=== PATIENT | male | born 1985 | race Caucasian/White ===

== ENCOUNTER 2016-09-20 21:53 | Emergency (ER) | payer OTHER ==
[~2016-09-20] VITALS: Ht 160 cm; Wt 55.5 kg
[~2016-09-20 21:53] MED LIST: CYCL10TA6 PO; HYDR-5688 PO
[2016-09-20 21:57] VITALS: TEMP 36.4; Ht 160 cm; Wt 55.5 kg
[2016-09-20] MEDS ORDERED: NORCO 5/325MG HOME PACK PO ONE (22:15)
[2016-09-20 22:38] VITALS: BP 122/70; PULSE 74; O2SAT 98
--- NOTE | 2016-09-20 23:20 | EMERGENCY ROOM VISIT NOTE ---
History Report prepared by German: Alonso Johnson Under the Supervision of: Dr. Edgardo Foy M.D. First contact with patient: 22:04 Chief Complaint: SHOULDER PAIN Stated Complaint: LEFT SHOULDER PAIN History of Present Illness The patient is a 31 year old male who presents to the Emergency Room with complaints of persistent left shoulder pain beginning 4 to 5 days ago. He notes he has had the pain for 4 to 5 days, and get a shot today which later worsened his pain. He was seen by a PA in [place] in this past Fall and had x-rays done. They had talked about steroids shots at this time. Lidocaine was used. The patient reports the pain radiates to his neck and is worsened with movement. The patient reports a history of hand surgery on his ulnar nerve and thus has chronic tingling in his left 4th and 5th digits. He has also had a vasectomy. Pt denies LOC, headache, fevers, chills, diaphoresis, visual changes, chest pain , breathing difficulties, nausea, vomiting, abdominal pain, weakness, rash, or other complaints. Source of History: patient Onset: 4 to 5 days ago Position: shoulder (left) Quality: other (shoulder pain) Timing: other (persistent) Modifying Factors (Worsening): movement Associated Symptoms: + neck pain Review of Systems See HPI for pertinent positives and negatives. A total of six systems were reviewed and were otherwise negative. Past Medical & Surgical Medical Problems: (1) Abdominal pain (2) Acute exacerbation of chronic low back pain (3) Cellulitis of left foot (4) Diarrhea (5) Lumbago (6) Rectal bleeding (7) Vomiting Surgical Problems: (1) H/O vasectomy (2) History of tonsillectomy (3) History of vasectomy (4) S/P tonsillectomy (5) [place] teeth extracted Family History FH: Crohn's disease Hypertension Social History Smoking Status: Current Every Day Smoker Alcohol Use: none Drug Use: none Marital Status: in relationship Housing Status: lives with significant other Occupation Status: employed Current/Historical Medications No Active Prescriptions or Reported Meds Allergies Coded Allergies: No Known Allergies (Unverified , 12/08/14) Physical Exam Vital Signs Date Time Temp Pulse Resp B/P Pulse Ox O2 Delivery O2 Flow Rate FiO2 09/20/16 22:38 74 20 122/70 98 09/20/16 21:57 36.4 73 19 136/91 97 Room Air Physical Exam GENERAL: Awake, alert, well-appearing, in no distress HENT: Normocephalic, atraumatic. Oropharynx unremarkable. EYES: Normal conjunctiva. Sclera non-icteric. NECK: Supple. No nuchal rigidity. FROM. No JVD. RESPIRATORY: Clear to auscultation. CARDIAC: Regular rate, normal rhythm. Extremities warm and well perfused. Pulses equal. ABDOMEN: Soft, non-distended. No tenderness to palpation. No rebound or guarding. No masses. RECTAL: Deferred. MUSCULOSKELETAL: Chest examination reveals no tenderness. The back is symmetrical on inspection without obvious abnormality. There is no CVA tenderness to palpation. No joint edema. Single injection site on the left posterior deltoid region. NVI over all dermatomes and myotomes except for chronic tingling in the left 4th and 5th digits since prior nerve surgery. LOWER EXTREMITIES: Calves are equal size bilaterally and non-tender. No edema. No discoloration. NEURO: Normal sensorium. No sensory or motor deficits noted. SKIN: No rash or jaundice noted. Medical Decision & Procedures Medications Administered Medications (Trade) Dose Ordered Sig/Power Route Start Time Stop Time Status Last Admin Dose Admin Acetaminophen/ Hydrocodone Bitart ([place] 5/325mg Home Pack) 1 homepack UD ONCE PO 09/20/16 22:15 09/20/16 22:16 DC 09/20/16 22:33 1 HOMEPACK ED Course 220: The patient was evaluated in room B5. A complete history and physical exam was performed. 2214: Ordered Acetaminophen/Hydrocodone Bitart 1 homepack PO. 2229: I reevaluated the patient. Discussed results and discharge instructions: He verbalized understanding and agreement. The patient is ready for discharge. Medical Decision Etiologies such as postinjection pain, soft tissue injury, fracture, dislocation , neurovascular compromise, compartment syndrome, as well as others were entertained. The patient had good range of motion of the left shoulder but there was some pain. There is no sign of infection. He is neurologically intact except for some tingling over the C8 dermatome which she states is chronic from his prior surgery. Internal and external rotation was preserved. Flexion and extension was preserved. Abduction was also preserved. The patient was given a sling. He'll be given a home pack for hydrocodone as I suspect he has pain from the injection. He worsens in any way she will come back. He will follow-up as an outpatient. I did outline sling instructions.I gave my usual and customary discussion regarding this issue. Return structures were outlined and the patient was discharged in stable condition. The chart was completed utilizing [employer] Speech voice recognition software. Grammatical errors, random word insertions, pronoun errors, and incomplete sentences are an occasional consequence of this system due to software limitations, ambient noise, and hardware issues. Any formal questions or concerns about the content, text, or information contained within the body of this dictation should be directly addressed to the physician for clarification. Impression Primary Impression: Left shoulder pain Scribe Attestation The scribe's documentation has been prepared under my direction and personally reviewed by me in its entirety. I confirm that the note above accurately reflects all work, treatment, procedures, and medical decision making performed by me. Departure Information Dispostion Home / Self-Care Prescriptions No Active Prescriptions or Reported Meds Referrals No Doctor, Assigned (PCP) Patient Instructions My [facility] Additional Instructions ORTHOPEDIC INSTRUCTIONS: Hydrocodone/acetaminophen 5/325mg: Take 1-2 pills every 6 hours as needed for pain. Avoid additional Acetaminophen/Tylenol, alcohol, operating machinery or dangerous equipment, working on ladders or roofs, DRIVING, or situations where being under the influence may be dangerous. Ibuprofen(Motrin, Advil) may be used for fever or pain. Use 600mg every six hours as needed. Take with food. Avoid using more than 2400mg in a 24 hour period. Do not use 2400mg per day for more than three consecutive days without physician direction. Prolonged inappropriate use can lead to stomach upset or ulcers. Ice compresses for 20 minutes at a time four times daily for 2-3 days. Use the sling as instructed. Remove your arm from the sling 4-6 times a day and move all the joints around to keep them loose. Rest and elevate your arm. Return to the ER immediately for any numbness, tingling, severe pain, extreme swelling in the extremity or as needed. Follow-up with your primary care physician in 2 to 3 days for a recheck of your current condition.
[2017-03-29] MEDS ORDERED: ONDA4TAB10 SL (17:03)
[2017-03-29] MEDS ORDERED: NICO14DI5 TD (17:03)
[2017-03-29] MEDS ORDERED: DICY10CA12 PO (17:03)
== END 2016-09-20 22:39 | disposition home or self-care (01) ==
LOC: C.EDB 21:56
DX: M25.512 Pain in left shoulder (principal); F17.200 Nicotine dependence, unspecified, uncomplicated; Z86.19 Personal history of other infectious and parasitic diseases; Z98.890 Other specified postprocedural states; Z98.52 Vasectomy status; Z82.49 Family history of ischemic heart disease and other diseases of the circulatory system

== ENCOUNTER 2017-03-24 10:02 | Inpatient (IN) | payer OTHER ==
[~2017-03-24] VITALS: Ht 162.6 cm; Wt 58.0 kg
[2017-03-24] MEDS ORDERED: WLLSR100 PO (10:35)
[2017-03-24] MEDS ORDERED: SODIUM CHLORIDE 0.9% 1000ML 1,000 ML IV ONE (11:30)
--- NOTE | 2017-03-24 11:45 | EMERGENCY ROOM VISIT NOTE ---
History First contact with patient: 11:11 Chief Complaint: RECTAL BLEEDING Stated Complaint: RECTAL BLEEDING Nursing Triage Summary: triage not: pt reports at approx 1000 he had a bm and it was bright red blood. History of Present Illness The patient is a 31 year old male who presents to the Emergency Room with complaints of bright red blood with his bowel movement at approximately 10 AM. He notes that there was blood in the toilet. He also had a significant amount of blood when he wiped. He denies any hemorrhoids. The patient also complains of intermittent abdominal pain in the lower abdomen. He does occasionally have blood in his stool and abdominal pain. He saw GI doctor a few years back. He had an EGD and a colonoscopy. No abnormalities were found. The patient does feel very warm. He did not check his temperature at home. He recently finished a course of antibiotics because his son caught pertussis; therefore, he was given prophylaxis. Review of Systems 10 system review performed and negative unless noted in HPI or below Past Medical/Surgical History Medical Problems: (1) Abdominal pain (2) Acute exacerbation of chronic low back pain (3) Cellulitis of left foot (4) Diarrhea (5) GI bleed (6) Lumbago (7) Rectal bleeding (8) Vomiting Surgical Problems: (1) H/O vasectomy (2) History of tonsillectomy (3) History of vasectomy (4) S/P tonsillectomy (5) [place] teeth extracted Family History FH: Crohn's disease Hypertension Social History Smoking Status: Current Every Day Smoker Alcohol Use: none Drug Use: none Marital Status: in relationship Housing Status: lives with significant other Occupation Status: employed Current/Historical Medications Scheduled Bupropion HCl (Bupropion HCl Sr), 100 MG PO BID Physical Exam Vital Signs Date Time Temp Pulse Resp B/P (MAP) Pulse Ox O2 Delivery O2 Flow Rate FiO2 03/24/17 13:10 77 03/24/17 12:32 68 20 03/24/17 12:02 73 15 03/24/17 12:01 125/81 03/24/17 11:32 78 24 03/24/17 11:12 77 03/24/17 11:08 122/72 03/24/17 10:26 36.9 95 18 149/94 97 Room Air Physical Exam VITALS: Vitals are noted on the nurse's note and reviewed by myself. Vital signs stable. GENERAL: 31-year-old male, in no acute distress, nondiaphoretic, well-developed well-nourished. SKIN: The skin was without rashes, erythema, edema, or bruising. HEAD: Normocephalic atraumatic. MOUTH: Mucous membranes moist. NECK: . No JVD. HEART: Regular rate and rhythm without murmurs gallops or rubs. LUNGS: Clear to auscultation bilaterally without wheezes, rales or rhonchi. No accessory muscle use. ABDOMEN: Bowel sounds present, but hypoactive..Soft, tenderness to palpation in the left lower quadrant, without organomegaly. No guarding or rebound tenderness. MUSCULOSKELETAL: No muscle atrophy, erythema, or edema noted. Normal gait. Strength 5/5 throughout. NEURO: Patient was alert and oriented to person place and time. Normal sensation to touch. No focal neurological deficits. Medical Decision & Procedures ER Provider Diagnostic Interpretation: CT of the abdomen and pelvis IMPRESSION: 1. No evidence of appendicitis. 2. Two adjacent short segment jejunojejunal intussusceptions without evidence of bowel obstruction. No gross evidence of a lead point or bowel wall thickening. These are of uncertain clinical significance as short segment small bowel intussusception is not uncommonly seen and can be asymptomatic. 3. Mild circumferential bladder wall thickening. Correlate with urinalysis to exclude cystitis. Laboratory Results 03/24/17 11:00 Red Blood Count 5.30, Mean Corpuscular Volume 86.0, Mean Corpuscular Hemoglobin 30.2, Mean Corpuscular Hemoglobin Concent 35.1, Mean Platelet Volume 9.7, Neutrophils (%) (Auto) 85.1, Lymphocytes (%) (Auto) 9.6, Monocytes (%) (Auto) 3.9, Eosinophils (%) (Auto) 0.1, Basophils (%) (Auto) 0.3, Neutrophils # (Auto) 5.73, Lymphocytes # (Auto) 0.65, Monocytes # (Auto) 0.26, Eosinophils # (Auto) 0.01, Basophils # (Auto) 0.02 03/24/17 11:00 Test 03/24/17 11:00 03/24/17 16:20 White Blood Count 6.74 K/uL (4.8-10.8) Red Blood Count 5.30 M/uL (4.7-6.1) Hemoglobin 16.0 g/dL (14.0-18.0) Hematocrit 45.6 % (42-52) Mean Corpuscular Volume 86.0 fL (80-100) Mean Corpuscular Hemoglobin 30.2 pg (25-34) Mean Corpuscular Hemoglobin Concent 35.1 g/dl (32-36) Platelet Count 300 K/uL (130-400) Mean Platelet Volume 9.7 fL (7.4-10.4) Neutrophils (%) (Auto) 85.1 % Lymphocytes (%) (Auto) 9.6 % Monocytes (%) (Auto) 3.9 % Eosinophils (%) (Auto) 0.1 % Basophils (%) (Auto) 0.3 % Neutrophils # (Auto) 5.73 K/uL (1.4-6.5) Lymphocytes # (Auto) 0.65 K/uL (1.2-3.4) Monocytes # (Auto) 0.26 K/uL (0.11-0.59) Eosinophils # (Auto) 0.01 K/uL (0-0.5) Basophils # (Auto) 0.02 K/uL (0-0.2) RDW Standard Deviation 43.0 fL (36.4-46.3) RDW Coefficient of Variation 13.7 % (11.5-14.5) Immature Granulocyte % (Auto) 1.0 % Immature Granulocyte # (Auto) 0.07 K/uL (0.00-0.02) Prothrombin Time 10.6 SECONDS (9.0-12.0) Prothromb Time International Ratio 1.0 (0.9-1.1) Activated Partial Thromboplast Time 27.7 SECONDS (21.0-31.0) Partial Thromboplastin Ratio 1.1 Anion Gap 6.0 mmol/L (3-11) Est Creatinine Clear Calc Drug Dose 116.5 ml/min Estimated GFR () 140.1 Estimated GFR (Non- 120.9 BUN/Creatinine Ratio 14.0 (10-20) Calcium Level 9.6 mg/dl (8.5-10.1) Total Bilirubin 0.5 mg/dl (0.2-1) Aspartate Amino Transf (AST/SGOT) 12 U/L (15-37) Alanine Aminotransferase (ALT/SGPT) 17 U/L (12-78) Alkaline Phosphatase 73 U/L (45-117) Total Protein 8.0 gm/dl (6.4-8.2) Albumin 4.5 gm/dl (3.4-5.0) Globulin 3.5 gm/dl (2.5-4.0) Albumin/Globulin Ratio 1.3 (0.9-2) Date/Time Source Procedure Growth Status 03/24/17 12:36 Stool C.difficile Toxin B Gene (PCR) - Final No C. difficile toxin B gene detected Complete Medications Administered Medications (Trade) Dose Ordered Sig/Power Route Start Time Stop Time Status Last Admin Dose Admin Sodium Chloride 1,000 ml @ 999 mls/hr Q1H1M ONCE IV 03/24/17 11:30 03/24/17 12:30 DC 03/24/17 11:30 999 MLS/HR Morphine Sulfate (MoRPHine SULFATE INJ) 4 mg Q1H PRN IV 03/24/17 14:45 04/07/17 14:44 03/24/17 14:41 4 MG ED Course Patient was seen and examined Vital signs including blood pressure were reviewed medications list was verified with patient Labs were obtained, and a saline lock was established The patient declined pain medication. He was hydrated with 1 L of normal saline. Imaging was performed and reviewed The patient was asking for pain medication when I reassessed him. He was given morphine 4 mg IV. I discussed the results of his workup. He voiced understanding. The case was discussed with Dr. Fine and Dr. Cisse from GI and general surgery respectively [facility]. Medical Decision DIFFERENTIAL DIAGNOSIS: Gastroenteritis, Hepatitis, cholecystitis, cholangitis, biliary colic, pancreatitis, appendicitis, inguinal hernia, nephrolithiasis, inflammatory bowel disease, mesenteric adenitis, peptic ulcer disease, GERD, gastritis, pancreatitis,, bowel obstruction, splenic infarct, diverticulitis, mesenteric ischemia, metabolic, peritonitis, among others. This patient is a 31-year-old male that presented to the emergency department with a bloody bowel movement and abdominal pain. On exam, the patient did have tenderness in the left lower quadrant and suprapubic region. His dad has a history of Crohn's disease. I thought that this could possibly be what's going on. The CT scan is consistent with 2 segments of intussusception in the small bowel. The patient did not have adequate pain control in the emergency department. The case was discussed with GI and with general surgery. They recommended that the patient be admitted for further evaluation. This chart was completed in part utilizing [employer] Voice Recognition software. Attempts were made to minimize the grammatical errors, random word insertions, pronoun errors and incomplete sentences. Any formal questions or concerns about the content, text or information contained within the body of this dictation should be directly addressed to the provider for clarification. Medication Reconcilliation Current Medication List: was personally reviewed by [place] Blood Pressure Screening Patient's blood pressure: Elevated blood pressure Blood pressure disposition: Elevated BP felt to be situational Impression Primary Impression: Intussusception of jejunum Departure Information Referrals No Doctor, Assigned (PCP) Patient Instructions My [facility]
[2017-03-24 11:56] LABS: BASO % 0.3 %; BASO ABS # 0.02 K/uL (0-0.2); COMPLETE YES; EOS % 0.1 %; HEMATOCRIT 45.6 % (42-52); LYMPH % 9.6 %; LYMPH ABS # 0.65 K/uL (1.2-3.4); MEAN CORPUSCULAR HEMOGLOBIN 30.2 pg (25-34); MEAN CORPUSCULAR HGB CONC 35.1 g/dl (32-36); MEAN PLATELET VOLUME 9.7 fL (7.4-10.4); MONO % 3.9 %; NEUT % 85.1 %; PLATELET COUNT 300 K/uL (130-400); WHITE BLOOD COUNT 6.74 K/uL (4.8-10.8)
[2017-03-24 11:57] LABS: PARTIAL THROMBOPLASTIN RATIO 1.1; PROTHROMBIN TIME (PATIENT) 10.6 SECONDS (9.0-12.0)
[2017-03-24 11:58] LABS: CALCIUM 9.6 mg/dl (8.5-10.1); CREATININE 0.77 mg/dl (0.60-1.40); POTASSIUM 4.3 mmol/L (3.5-5.1)
[2017-03-24] MEDS ORDERED: OPTIRAY 320 IV PRN (12:00)
[2017-03-24 12:01] LABS: ALB/GLOB RATIO 1.3 (0.9-2)
[2017-03-24] MEDS ORDERED: MoRPHine SULFATE 4 MG/ML 1 ML CARP\\VIAL IV PRN (14:45)
--- NOTE | 2017-03-24 14:52 | DIAGNOSTIC IMAGING REPORT ---
ABD/PELVIS IV AND ORAL CONT CLINICAL HISTORY: 31 years-old Male presenting with BRB in stool abd pain. TECHNIQUE: Multidetector CT of the abdomen and pelvis was performed after the administration of oral and intravenous contrast. IV contrast: 93 mL of Optiray 320. A dose lowering technique was used consistent with the principles of ALARA (as low as reasonably achievable). COMPARISON: 11/11/2014. CT DOSE (mGy.cm): The estimated cumulative dose is 320.55 mGy.cm. FINDINGS: Crank Hand topogram: Unremarkable. Lung bases: Lung bases clear. Normal heart size. No pericardial or pleural effusion. Liver: Normal morphology. No liver lesion. Patent hepatic vasculature. Biliary: No intrahepatic or extrahepatic biliary ductal dilatation. Normal gallbladder. Pancreas: Normal. Spleen: Normal. Adrenal glands: Normal. Kidneys and ureters: Normal. No hydronephrosis. Distal ureters poorly visualized. Bladder: Mild circumferential bladder wall thickening. Pelvic organs: Prostate and seminal vesicles normal. Bowel: Two adjacent short segment jejunojejunal intussusceptions (series 2 images 30 and 36). No gross evidence of a mass lesion or lead point. Oral contrast appears to transited beyond the more distal intussusception. These are of uncertain clinical significance. Oral contrast has not yet reached the distal ileum. No gross evidence of bowel wall thickening. No bowel obstruction. Normal appendix. No gross evidence of intraluminal extravasation of vascular contrast suggest an active site of hemorrhage. Peritoneal cavity: No free fluid or intraperitoneal gas. Lymph nodes: No enlarged lymph nodes in the abdomen or pelvis. Vasculature: Aorta and IVC patent and normal in caliber. Abdominal wall: Postsurgical changes of vasectomy. Musculoskeletal: Normal. IMPRESSION: 1. No evidence of appendicitis. 2. Two adjacent short segment jejunojejunal intussusceptions without evidence of bowel obstruction. No gross evidence of a lead point or bowel wall thickening. These are of uncertain clinical significance as short segment small bowel intussusception is not uncommonly seen and can be asymptomatic. 3. Mild circumferential bladder wall thickening. Correlate with urinalysis to exclude cystitis. Electronically signed by: Mickey Cortés M.D. 03/24/2017 2:51 PM Dictated Date/Time: 03/24/2017 2:43 PM
[2017-03-24] MEDS ORDERED: ONDANSETRON INJ 2 MG/ML 2 ML VIAL IV PRN (16:00)
[2017-03-24] MEDS ORDERED: HYDROmorphone INJ 0.5 MG/0.5 ML SYR ONE (16:55)
[2017-03-24 17:12] LABS: URINE APPEARANCE CLEAR (CLEAR); URINE BILIRUBIN NEG (NEG); URINE COLOR YELLOW; URINE NITRITE NEG (NEG); URINE SPECIFIC GRAVITY 1.039 (1.000-1.030); UROBILINOGEN NEG (NEG)
[2017-03-24 17:19] LABS: MANUAL MICROSCOPIC REQUIRED? NO; REVIEW REQ? NO
[2017-03-24] MEDS ORDERED: LEVALBUTEROL/IPRATROPIUM NEB INH SCH (17:30)
[2017-03-24] MEDS ORDERED: NICOTINE 14 MG/24 HR TDSY TD ONE (17:35)
[2017-03-24] MEDS ORDERED: PANTOprazole INJ 80 MG in DEXTROSE 5% 100ML IV SCH (17:45)
[2017-03-24 17:50] LABS: HEMATOCRIT 40.9 % (42-52)
[2017-03-24 18:15] VITALS: BP 116/80; PULSE 61; TEMP 36.5; Ht 162.6 cm; Wt 58.0 kg
--- NOTE | 2017-03-24 18:19 | Surgery Consultation ---
Consultation Date of Consultation: Mar 24, 2017. Attending Physician: History of Present Illness Moshe Quezada is a 31 year old man who presents to the ED following an episode of rectal bleeding. States around 10am this morning, he had low abdominal pain; went to the bathroom, where he had a loose BM with bright red blood. Denies any history of hemorrhoids. He does have history over the past few years of intermittent bright red blood per rectum. He has a family history of Crohn's disease (his father), and had a colonoscopy and EGD completed by GI approximately 2 years ago; no abnormalities were reported. He has continued to have intermittent episodes of low abdominal pain with intermittent blood per rectum. Notes his bowel habits are not regular - will occasionally go a few days without a BM, then have several BMs per day. This has gone on for years, and he has had no recent changes. With the pain earlier today, he had nausea but no vomiting. Approximately 2 weeks ago he was treated for pertussis ( exposed to his son, who had the infection); he completed a 5 day course of antibiotics 2 days ago and completed prednisone yesterday. Currently he is not having much pain and overall is comfortable. Feels like he has been intermittently hot and cold, but denies true fevers. Denies headaches, dizziness / lightheadedness, vision changes, chest pain, SOB, appetite or weight changes, vomiting, changes to usual bowel habits, melena, dysuria or urinary symptoms, pain / numbness / swelling / tingling in extremities. No prior abdominal surgeries. Patient does not take any anticoagulation. Past Medical/Surgical History Medical History: (1) Chronic low back pain (2) History of GI bleed Surgical History: (1) History of vasectomy (2) History of tonsillectomy (3) [place] teeth extracted Family History FH: Crohn's disease Hypertension Social History Smoking Status: Current Every Day Smoker Drug Use: none Marital Status: in relationship Housing Status: lives with significant other Occupation Status: employed Allergies Coded Allergies: Gabapentin (Unverified Allergy, Severe, CHEST PAIN, 03/24/17) Home Medications Scheduled Bupropion HCl (Bupropion HCl Sr), 100 MG PO BID Current Inpatient Medications Current Inpatient Medications Medications (Trade) Dose Ordered Sig/Power Route Start Time Stop Time Status Last Admin Dose Admin Ioversol (Optiray 320) 100 ml UD PRN IV 03/24/17 12:00 03/28/17 11:59 Morphine Sulfate (MoRPHine SULFATE INJ) 4 mg Q1H PRN IV 03/24/17 14:45 04/07/17 14:44 03/24/17 14:41 4 MG Ondansetron HCl (Zofran Inj) 4 mg Q2H PRN IV 03/24/17 16:00 04/23/17 15:59 03/24/17 17:01 4 MG Dextrose/Sodium Chloride 1,000 ml @ 100 mls/hr Q10H IV 03/24/17 17:15 04/23/17 17:14 UNV Hydromorphone HCl (Dilaudid Inj) 0.5 mg Q3H PRN IV 03/24/17 17:15 04/07/17 17:14 UNV Miscellaneous (Xopenex/ Atrovent Neb) 1 ea Q6R INH 03/24/17 17:30 04/23/17 17:29 UNV Nicotine (Nicoderm Cq 14MG Patch) 1 patch QAM TD 03/25/17 09:00 04/24/17 08:59 UNV Miscellaneous (Remove Nicoderm Patch) 1 ea HS N/A 03/24/17 21:00 04/23/17 20:59 UNV Pantoprazole Sodium 80 mg/ Dextrose 120 ml @ 480 mls/hr TODAY@1745 IV 03/24/17 17:45 03/24/17 17:59 Pantoprazole Sodium 40 mg/ Dextrose 100 ml @ 20 mls/hr Q5H IV 03/24/17 18:00 04/23/17 17:59 Review of Systems Constitutional: + sweats, No fever, No chills Eyes: No worsening of vision Respiratory: No cough, No sputum, No shortness of breath Cardiovascular: No chest pain, No edema Abdomen: + pain, + nausea, + GI bleeding, No vomiting Genitourinary - Male: No hematuria, No dysuria, No urinary frequency, No urinary urgency Neurologic: No weakness, No numbness/tingling Integumentary: No rash Physical Exam Date Time Temp Pulse Resp B/P (MAP) Pulse Ox O2 Delivery O2 Flow Rate FiO2 03/24/17 17:40 61 15 111/82 97 03/24/17 17:31 61 15 111/82 97 Room Air 03/24/17 13:10 77 03/24/17 12:32 68 20 03/24/17 12:02 73 15 03/24/17 12:01 125/81 03/24/17 11:32 78 24 03/24/17 11:12 77 03/24/17 11:08 122/72 03/24/17 10:26 36.9 95 18 149/94 97 Room Air General Appearance: WD/WN, no apparent distress Head: normocephalic, atraumatic Eyes: normal inspection Neck: supple Respiratory/Chest: lungs clear, normal breath sounds, no respiratory distress Cardiovascular: regular rate, rhythm, no edema Abdomen/GI: normal bowel sounds, soft (non distended, no rebound / guarding), + tenderness (tenderness to palpation around umbilicus) Genitourinary - Male: normal male genitalia Neurologic/Psych: alert, normal mood/affect, oriented x 3 Skin: normal color, warm/dry Laboratory Results Last 24 Hours Test 03/24/17 11:00 03/24/17 16:13 03/24/17 16:20 03/24/17 17:41 White Blood Count 6.74 K/uL Red Blood Count 5.30 M/uL Hemoglobin 16.0 g/dL 15.1 g/dL Hematocrit 45.6 % 40.9 % Mean Corpuscular Volume 86.0 fL Mean Corpuscular Hemoglobin 30.2 pg Mean Corpuscular Hemoglobin Concent 35.1 g/dl Platelet Count 300 K/uL Mean Platelet Volume 9.7 fL Neutrophils (%) (Auto) 85.1 % Lymphocytes (%) (Auto) 9.6 % Monocytes (%) (Auto) 3.9 % Eosinophils (%) (Auto) 0.1 % Basophils (%) (Auto) 0.3 % Neutrophils # (Auto) 5.73 K/uL Lymphocytes # (Auto) 0.65 K/uL Monocytes # (Auto) 0.26 K/uL Eosinophils # (Auto) 0.01 K/uL Basophils # (Auto) 0.02 K/uL RDW Standard Deviation 43.0 fL RDW Coefficient of Variation 13.7 % Immature Granulocyte % (Auto) 1.0 % Immature Granulocyte # (Auto) 0.07 K/uL Prothrombin Time 10.6 SECONDS Prothromb Time International Ratio 1.0 Activated Partial Thromboplast Time 27.7 SECONDS Partial Thromboplastin Ratio 1.1 Sodium Level 137 mmol/L Potassium Level 4.3 mmol/L Chloride Level 105 mmol/L Carbon Dioxide Level 26 mmol/L Anion Gap 6.0 mmol/L Blood Urea Nitrogen 11 mg/dl Creatinine 0.77 mg/dl Est Creatinine Clear Calc Drug Dose 116.5 ml/min Estimated GFR () 140.1 Estimated GFR (Non- 120.9 BUN/Creatinine Ratio 14.0 Random Glucose 117 mg/dl Calcium Level 9.6 mg/dl Total Bilirubin 0.5 mg/dl Aspartate Amino Transf (AST/SGOT) 12 U/L Alanine Aminotransferase (ALT/SGPT) 17 U/L Alkaline Phosphatase 73 U/L Total Protein 8.0 gm/dl Albumin 4.5 gm/dl Globulin 3.5 gm/dl Albumin/Globulin Ratio 1.3 Urine Color YELLOW Urine Appearance CLEAR Urine pH 7.0 Urine Specific [place] 1.039 Urine Protein NEG Urine Glucose (UA) NEG Urine Ketones NEG Urine Occult Blood NEG Urine Nitrite NEG Urine Bilirubin NEG Urine Urobilinogen NEG Urine Leukocyte Esterase NEG Lactic Acid Level 0.9 mmol/L 03/24/17 CT Abd / pelvis with IV and PO contrast: IMPRESSION: 1. No evidence of appendicitis. 2. Two adjacent short segment jejunojejunal intussusceptions without evidence of bowel obstruction. No gross evidence of a lead point or bowel wall thickening. These are of uncertain clinical significance as short segment small bowel intussusception is not uncommonly seen and can be asymptomatic. 3. Mild circumferential bladder wall thickening. Correlate with urinalysis to exclude cystitis. Assessment & Plan Moshe Quezada is a 31 year old man with history of intermittent rectal bleeding and irregular bowel habits, who has a family history of Crohn's disease who presents with low abdominal pain and bright red blood per rectum. He is afebrile, hemodynamically stable and normal. Since the initial episode, he has not had any further rectal bleeding, and pain is currently better than onset. No leukocytosis, Hgb is normal; no other lab abnormalities. No lactic acidosis. CT scan was completed with IV and PO contrast, which shows two areas of possible small bowel into small bowel intussusception - no concerns for obstruction. No free air, abscesses, or other abnormalities noted. On exam, his abdomen is soft, non distended, mildly tender to palpation around the umbilicus with no rebound or guarding. Pain is adequately controlled with medications, and he appears comfortable. -No acute surgical intervention indicated at this time; will trend clinical course at this time -May eventually consider follow up CT scan to re-evaluate small bowel -Keep NPO for now, IVF hydration -Trend labs, replete electrolytes as needed -Recommend GI consultation given repeated episodes of GI bleeding and family history of Crohn's disease -No anticoagulation given recent bleeding. -Rest of care per primary team -Will continue to follow Fatoumata Cisse MD 03/24/17
--- NOTE | 2017-03-24 18:44 | DIAGNOSTIC IMAGING REPORT ---
CHEST ONE VIEW PORTABLE CLINICAL HISTORY: 31 years-old Male presenting with wheezing, r/o pneumonia. TECHNIQUE: Portable upright AP view of the chest was obtained. COMPARISON: 01/25/2015. FINDINGS: Cardiomediastinal silhouette normal. Lungs and pleural spaces clear. Osseous structures normal. Upper abdomen normal. IMPRESSION: 1. No acute cardiopulmonary disease. Electronically signed by: Mickey Cortés M.D. 03/24/2017 6:43 PM Dictated Date/Time: 03/24/2017 6:42 PM
[2017-03-24] MEDS: IPRATROPIUM BROMIDE NEB SOLN 0.02% 2.5 ML VIAL INH SCH (19:19)
[2017-03-24] MEDS: LEVALBUTEROL 1.25MG/0.5ML NEB INH SCH (19:19)
[2017-03-24 19:20] VITALS: PULSE 57; O2SAT 97
[2017-03-24] MEDS: PANTOprazole INJ 40 MG in DEXTROSE 5% 100ML IV SCH ×2 (19:20→23:00)
[2017-03-24] MEDS: HYDROmorphone INJ 0.5 MG/0.5 ML SYR IV PRN (19:21)
[2017-03-24] MEDS: D5W AND NSS 1,000 ML IV SCH (19:23)
[2017-03-24] MEDS ORDERED: INFLUENZA VIRUS QUAD VACCINE 0.5 ML SYR IM. ONE (20:00)
[2017-03-24] MEDS ORDERED: INFLUENZA ADMINISTRATION CHARGE ONE (20:00)
--- NOTE | 2017-03-24 21:52 | History and Physical ---
History & Physical Date & Time of Service: Mar 24, 2017 at 21:43 Chief Complaint: Gi Bleed Primary Care Physician: No Doctor, Assigned History of Present Illness 31 year old male with history of Smoking presenting with abdominal pain that started this morning. Patient was doing well until this morning. He had a bowel movement associated with hematochezia and abdominal pain- diffuse, crampy, comes in waves. The abdominal pain persisted prompting consult to the ER. CT scan abdomen/pelvis showing jejuno-jejunal intussusception. On exam, patient seen sitting up in bed. States pain is worse when laying flat. Pain is about 8-9/10, associated with nausea, chills. No recurrence of hematochezia. Past Medical/Surgical History Medical Problems: (1) Abdominal pain Status: Resolved (2) Acute exacerbation of chronic low back pain Status: Resolved (3) Cellulitis of left foot Status: Resolved (4) Diarrhea Status: Resolved (5) Lumbago Status: Chronic (6) Rectal bleeding Status: Resolved (7) Vomiting Status: Resolved Surgical Problems: (1) H/O vasectomy Status: Resolved (2) History of tonsillectomy Status: Resolved (3) History of vasectomy Status: Resolved (4) S/P tonsillectomy Status: Resolved (5) [place] teeth extracted Status: Resolved Family History FH: Crohn's disease Hypertension Social History Smoking Status: Current Every Day Smoker Drug Use: none Marital Status: in relationship Occupational Status: employed Multi-Drug Resistant Organisms History of MDRO: No Allergies Coded Allergies: Gabapentin (Unverified Allergy, Severe, CHEST PAIN, 03/24/17) Home Medications Scheduled Bupropion HCl (Bupropion HCl Sr), 100 MG PO BID Review of Systems Constitutional- no fever; no weight loss Eyes- no acute visual changes ENT- no sinus drainage; no pharyngitis Pulmonary- no cough, no wheezing, no shortness of breath Cardiac- no chest pain, no palpitations, no orthopnea, no dependent edema GI- (+) as noted - no dysuria, no hematuria Musculoskeletal- no arthralgias, no myalgias Derm- no rashes, no new skin lesions, no changing skin lesions Hematologic- no unusual bruising, no unusual bleeding Lymphatics- no adenopathy Endocrine- no polyuria or polydipsia; no heat or cold intolerance Neuro- no headaches, no focal neurologic symptoms Psych- no anxiety, no depression Physical Exam Vital Signs Date Time Temp Pulse Resp B/P (MAP) Pulse Ox O2 Delivery O2 Flow Rate FiO2 03/24/17 19:20 57 14 97 Room Air 03/24/17 18:15 36.5 61 16 116/80 Room Air 03/24/17 17:40 61 15 111/82 97 03/24/17 17:31 61 15 111/82 97 Room Air 03/24/17 13:10 77 03/24/17 12:32 68 20 03/24/17 12:02 73 15 03/24/17 12:01 125/81 03/24/17 11:32 78 24 03/24/17 11:12 77 03/24/17 11:08 122/72 03/24/17 10:26 36.9 95 18 149/94 97 Room Air General Appearance: WD/WN, no apparent distress Head: normocephalic, atraumatic Eyes: normal inspection, EOMI, sclerae normal ENT: normal ENT inspection, hearing grossly normal, pharynx normal Neck: supple, no adenopathy, thyroid normal, no JVD, no carotid bruits Respiratory/Chest: no respiratory distress, no accessory muscle use, + wheezing (mild scattered bilaterally) Cardiovascular: regular rate, rhythm, no edema, no JVD, no murmur Abdomen/GI: normal bowel sounds, non tender, soft Extremities/Musculoskelatal: normal inspection, no calf tenderness, no pedal edema, normal range of motion Neurologic/Psych: science technician II-XII nml as tested, no motor/sensory deficits, alert, normal reflexes, oriented x 3 Skin: normal color, warm/dry, no rash Lymphatic: no adenopathy Diagnostics Laboratory Results Results Past 24 Hours Test 03/24/17 11:00 03/24/17 16:13 03/24/17 16:20 03/24/17 17:41 Range/Units White Blood Count 6.74 4.8-10.8 K/uL Red Blood Count 5.30 4.7-6.1 M/uL Hemoglobin 16.0 15.1 14.0-18.0 g/dL Hematocrit 45.6 40.9 42-52 % Mean Corpuscular Volume 86.0 80-100 fL Mean Corpuscular Hemoglobin 30.2 25-34 pg Mean Corpuscular Hemoglobin Concent 35.1 32-36 g/dl Platelet Count 300 130-400 K/uL Mean Platelet Volume 9.7 7.4-10.4 fL Neutrophils (%) (Auto) 85.1 % Lymphocytes (%) (Auto) 9.6 % Monocytes (%) (Auto) 3.9 % Eosinophils (%) (Auto) 0.1 % Basophils (%) (Auto) 0.3 % Neutrophils # (Auto) 5.73 1.4-6.5 K/uL Lymphocytes # (Auto) 0.65 1.2-3.4 K/uL Monocytes # (Auto) 0.26 0.11-0.59 K/uL Eosinophils # (Auto) 0.01 0-0.5 K/uL Basophils # (Auto) 0.02 0-0.2 K/uL RDW Standard Deviation 43.0 36.4-46.3 fL RDW Coefficient of Variation 13.7 11.5-14.5 % Immature Granulocyte % (Auto) 1.0 % Immature Granulocyte # (Auto) 0.07 0.00-0.02 K/uL Prothrombin Time 10.6 9.0-12.0 SECONDS Prothromb Time International Ratio 1.0 0.9-1.1 Activated Partial Thromboplast Time 27.7 21.0-31.0 SECONDS Partial Thromboplastin Ratio 1.1 Sodium Level 137 136-145 mmol/L Potassium Level 4.3 3.5-5.1 mmol/L Chloride Level 105 98-107 mmol/L Carbon Dioxide Level 26 21-32 mmol/L Anion Gap 6.0 3-11 mmol/L Blood Urea Nitrogen 11 7-18 mg/dl Creatinine 0.77 0.60-1.40 mg/dl Est Creatinine Clear Calc Drug Dose 116.5 ml/min Estimated GFR () 140.1 Estimated GFR (Non- 120.9 BUN/Creatinine Ratio 14.0 10-20 Random Glucose 117 70-99 mg/dl Calcium Level 9.6 8.5-10.1 mg/dl Total Bilirubin 0.5 0.2-1 mg/dl Aspartate Amino Transf (AST/SGOT) 12 15-37 U/L Alanine Aminotransferase (ALT/SGPT) 17 12-78 U/L Alkaline Phosphatase 73 45-117 U/L Total Protein 8.0 6.4-8.2 gm/dl Albumin 4.5 3.4-5.0 gm/dl Globulin 3.5 2.5-4.0 gm/dl Albumin/Globulin Ratio 1.3 0.9-2 Urine Color YELLOW Urine Appearance CLEAR CLEAR Urine pH 7.0 4.5-7.5 Urine Specific [place] 1.039 1.000-1.030 Urine Protein NEG NEG Urine Glucose (UA) NEG NEG Urine Ketones NEG NEG Urine Occult Blood NEG NEG Urine Nitrite NEG NEG Urine Bilirubin NEG NEG Urine Urobilinogen NEG NEG Urine Leukocyte Esterase NEG NEG Lactic Acid Level 0.9 0.4-2.0 mmol/L Microbiology Results 03/24/17 C.difficile Toxin B Gene (PCR) - Final, Complete No C. difficile toxin B gene detected 03/24/17 WBC Smear, Received Pending 03/24/17 Shiga Toxin Test, Received Pending 03/24/17 Stool Culture, Received Pending Diagnostic Radiology ABD/PELVIS IV AND ORAL CONT CLINICAL HISTORY: 31 years-old Male presenting with BRB in stool abd pain. TECHNIQUE: Multidetector CT of the abdomen and pelvis was performed after the administration of oral and intravenous contrast. IV contrast: 93 mL of Optiray 320. A dose lowering technique was used consistent with the principles of ALARA (as low as reasonably achievable). COMPARISON: 11/11/2014. CT DOSE (mGy.cm): The estimated cumulative dose is 320.55 mGy.cm. FINDINGS: Jewelry Sales Representative topogram: Unremarkable. Lung bases: Lung bases clear. Normal heart size. No pericardial or pleural effusion. Liver: Normal morphology. No liver lesion. Patent hepatic vasculature. Biliary: No intrahepatic or extrahepatic biliary ductal dilatation. Normal gallbladder. Pancreas: Normal. Spleen: Normal. Adrenal glands: Normal. Kidneys and ureters: Normal. No hydronephrosis. Distal ureters poorly visualized. Bladder: Mild circumferential bladder wall thickening. Pelvic organs: Prostate and seminal vesicles normal. Bowel: Two adjacent short segment jejunojejunal intussusceptions (series 2 images 30 and 36). No gross evidence of a mass lesion or lead point. Oral contrast appears to transited beyond the more distal intussusception. These are of uncertain clinical significance. Oral contrast has not yet reached the distal ileum. No gross evidence of bowel wall thickening. No bowel obstruction. Normal appendix. No gross evidence of intraluminal extravasation of vascular contrast suggest an active site of hemorrhage. Peritoneal cavity: No free fluid or intraperitoneal gas. Lymph nodes: No enlarged lymph nodes in the abdomen or pelvis. Vasculature: Aorta and IVC patent and normal in caliber. Abdominal wall: Postsurgical changes of vasectomy. Musculoskeletal: Normal. IMPRESSION: 1. No evidence of appendicitis. 2. Two adjacent short segment jejunojejunal intussusceptions without evidence of bowel obstruction. No gross evidence of a lead point or bowel wall thickening. These are of uncertain clinical significance as short segment small bowel intussusception is not uncommonly seen and can be asymptomatic. 3. Mild circumferential bladder wall thickening. Correlate with urinalysis to exclude cystitis. Impression Assessment and Plan 31 year old male with history of Smoking presenting with abdominal pain that started this morning. ABDOMINAL PAIN WITH HEMATOCHEZIA LIKELY FROM INTUSSUSCEPTION - discussed with Dr. Cisse conservative management for now with NPO, IV fluids monitor closely, hopefully intussusception will resolve overnight r/o GI BLEED - father has Crohn's - NPO, IV Protonix, IV Fluids - GI consulted, discussed with Dr. Fine WHEEZING - present smoker - recently finished Azithromycin, Prednisone for possible whooping cough - Nebs q6h monitor SMOKER - Nicotine patch DVT Proph SCDs Full Code Disposition pending Advanced Directives Existing Living Will: No Existing Power of Engineering Team Supervisor: No VTE Prophylaxis VTE Risk Assessment Done? Y/N: Yes Risk Level: Moderate
[2017-03-24] MEDS: ONDANSETRON INJ 2 MG/ML 2 ML VIAL IV PRN (23:00)
[2017-03-24 23:03] VITALS: BP 93/58; PULSE 45; TEMP 36.5; O2SAT 98
[2017-03-24 23:23] LABS: HEMATOCRIT 41.2 % (42-52)
[2017-03-25] VITALS (12 sets, daily range): BP systolic 90–137; BP diastolic 57–90; PULSE 53–76; TEMP 36.3–36.7; O2SAT 95–99
[2017-03-25] MEDS: HYDROmorphone INJ 0.5 MG/0.5 ML SYR IV PRN ×5 (00:28→22:20)
[2017-03-25] MEDS: LEVALBUTEROL 1.25MG/0.5ML NEB INH SCH ×4 (02:18→19:28)
[2017-03-25] MEDS: IPRATROPIUM BROMIDE NEB SOLN 0.02% 2.5 ML VIAL INH SCH ×4 (02:18→19:28)
[2017-03-25] MEDS: PANTOprazole INJ 40 MG in DEXTROSE 5% 100ML IV SCH ×5 (04:24→23:56)
[2017-03-25] MEDS: D5W AND NSS 1,000 ML IV SCH ×3 (04:25→22:21)
[2017-03-25 05:35] LABS: BASO % 0.5 %; BASO ABS # 0.03 K/uL (0-0.2); COMPLETE YES; EOS % 3.1 %; IG% 0.5 %; LYMPH % 34.7 %; LYMPH ABS # 2.27 K/uL (1.2-3.4); MEAN CELL VOLUME 86.4 fL (80-100); MEAN CORPUSCULAR HGB CONC 34.8 g/dl (32-36); MEAN PLATELET VOLUME 9.5 fL (7.4-10.4); MONO % 15.7 %; NEUT % 45.5 %; PLATELET COUNT 233 K/uL (130-400); RED BLOOD COUNT 4.63 M/uL (4.7-6.1); WHITE BLOOD COUNT 6.54 K/uL (4.8-10.8)
[2017-03-25 06:10] LABS: CREATININE 0.77 mg/dl (0.60-1.40)
[2017-03-25 06:11] LABS: BUN/CREATININE RATIO 10.9 (10-20); CALCIUM 8.2 mg/dl (8.5-10.1); POTASSIUM 3.5 mmol/L (3.5-5.1)
--- NOTE | 2017-03-25 09:11 | Gastrointestinal Consultation ---
Gastrointestinal Consultation Date of Consultation: Mar 25, 2017 Attending Physician: Dr. Mcintosh Consulting Physician: Dr. Camacho Reason for Consultation: Rectal bleeding History of Present Illness Patient is a 31 year old male patient w/o primary care physician who presented to the ED yesterday morning for rectal bleeding. GI is consulted for this issue. Mr. Quezada works in [employer] here at [facility]. During work he had a sudden urge to defecate and passed a formed brown/black BM with a lot of liquid blood. Periumbilical and LLQ pain began soon after the bloody BM. The pain has persisted with slight improvement with narcotics. He passed another brown/black BM yesterday after arrival in the ED. He tells me that he has pain "every day of my life for the last 4-5 years," with varying intensity, in the same area as he has the pain today. He underwent EGD and colonoscopy in 2014 for rectal bleeding and abdominal pain with findings of gastritis, otherwise normal. The patient has a family hx of Crohn's (father). On arrival, CT with small bowel intussusception w/o obstruction. WBC and lactic acid are normal. Hb was 16 on arrival and is 13.9 today. BUN has remained normal. He has been seen by surgery who recommend eventual endoscopic eval and are not planning any surgical procedures. Past Medical/Surgical History Medical Problems: (1) Intussusception of jejunum Status: Acute (2) Left shoulder pain Status: Acute (3) Lumbago Status: Chronic Past Medical History: 1. Chronic abdominal pain. 2. Smoker 3. Recent pertussis (son and tested positive and this pt was tx with zithromax). Past Surgical History: 1. EGD and colonoscopy in 2014 see HPI. 2. Vasectomy 3. Eye surgery 4. [place] teeth extractions 5. Lt hand ulnar nerve release. Family History FH: Crohn's disease Hypertension Social History Smoking Status: Current Every Day Smoker Alcohol Use: none Drug Use: none Marital Status: in relationship Housing Status: lives with significant other Occupation Status: employed Allergies Coded Allergies: Gabapentin (Unverified Allergy, Severe, CHEST PAIN, 03/24/17) Current Medications Home Meds and Scripts Medications Dose Route/Sig Max Daily Dose Days Date Category Bupropion HCl Sr (Bupropion HCl) 100 Mg Tabcr 100 Mg PO BID 10/8/17 Reported Review of Systems Constitutional: + chills, + sweats, No fever, No weight loss, No weakness Eyes: No eye pain, No redness ENT: No sore throat, No trouble swallowing, No pain on swallowing Respiratory: + cough, + wheezing, No shortness of breath, No dyspnea on exertion Cardiac: No chest pain, No edema, No palpitations Abdomen: + see HPI Neuro: No memory loss, No weakness, No numbness/tingling, No vertigo, No balance problems Psych: No depression symptoms, No anxiety, No insomnia Heme: No abnormal bleeding/bruising, No night sweats Endo: No excessive thirst, No excessive urination Skin: No rash, No itch, No new/changing skin lesions, No jaundice Physical Exam Date Time Temp Pulse Resp B/P (MAP) Pulse Ox O2 Delivery O2 Flow Rate FiO2 03/25/17 07:39 36.6 60 18 121/90 (100) 95 Room Air 03/25/17 07:15 67 14 98 Room Air 03/25/17 04:07 36.4 58 15 90/57 (68) 97 Room Air 03/25/17 04:00 Room Air 03/24/17 23:59 Room Air 03/24/17 23:03 36.5 45 18 93/58 (70) 98 Room Air 03/24/17 20:00 Room Air 03/24/17 19:20 57 14 97 Room Air 03/24/17 18:15 36.5 61 16 116/80 Room Air 03/24/17 17:40 61 15 111/82 97 03/24/17 17:31 61 15 111/82 97 Room Air 03/24/17 13:10 77 03/24/17 12:32 68 20 03/24/17 12:02 73 15 03/24/17 12:01 125/81 03/24/17 11:32 78 24 03/24/17 11:12 77 03/24/17 11:08 122/72 03/24/17 10:26 36.9 95 18 149/94 97 Room Air General Appearance: no apparent distress, + thin Eyes: normal inspection, EOMI Neck: supple, no adenopathy, thyroid normal, no JVD Respiratory/Chest: chest non-tender, no accessory muscle use, + wheezing Cardiovascular: regular rate, rhythm, no JVD, no murmur Abdomen: normal bowel sounds, soft, no organomegaly, + tenderness (very tender over the periumbilical and LLQ areas) Extremities: normal inspection, no pedal edema, normal capillary refill Neurologic/Psych: alert, normal mood/affect, oriented x 3 Skin: normal color, no jaundice, warm/dry, no rash Laboratory Results Last 24 Hours Test 03/24/17 11:00 03/24/17 16:13 03/24/17 16:20 03/24/17 17:41 White Blood Count 6.74 K/uL Red Blood Count 5.30 M/uL Hemoglobin 16.0 g/dL 15.1 g/dL Hematocrit 45.6 % 40.9 % Mean Corpuscular Volume 86.0 fL Mean Corpuscular Hemoglobin 30.2 pg Mean Corpuscular Hemoglobin Concent 35.1 g/dl Platelet Count 300 K/uL Mean Platelet Volume 9.7 fL Neutrophils (%) (Auto) 85.1 % Lymphocytes (%) (Auto) 9.6 % Monocytes (%) (Auto) 3.9 % Eosinophils (%) (Auto) 0.1 % Basophils (%) (Auto) 0.3 % Neutrophils # (Auto) 5.73 K/uL Lymphocytes # (Auto) 0.65 K/uL Monocytes # (Auto) 0.26 K/uL Eosinophils # (Auto) 0.01 K/uL Basophils # (Auto) 0.02 K/uL RDW Standard Deviation 43.0 fL RDW Coefficient of Variation 13.7 % Immature Granulocyte % (Auto) 1.0 % Immature Granulocyte # (Auto) 0.07 K/uL Prothrombin Time 10.6 SECONDS Prothromb Time International Ratio 1.0 Activated Partial Thromboplast Time 27.7 SECONDS Partial Thromboplastin Ratio 1.1 Sodium Level 137 mmol/L Potassium Level 4.3 mmol/L Chloride Level 105 mmol/L Carbon Dioxide Level 26 mmol/L Anion Gap 6.0 mmol/L Blood Urea Nitrogen 11 mg/dl Creatinine 0.77 mg/dl Est Creatinine Clear Calc Drug Dose 116.5 ml/min Estimated GFR () 140.1 Estimated GFR (Non- 120.9 BUN/Creatinine Ratio 14.0 Random Glucose 117 mg/dl Calcium Level 9.6 mg/dl Total Bilirubin 0.5 mg/dl Aspartate Amino Transf (AST/SGOT) 12 U/L Alanine Aminotransferase (ALT/SGPT) 17 U/L Alkaline Phosphatase 73 U/L Total Protein 8.0 gm/dl Albumin 4.5 gm/dl Globulin 3.5 gm/dl Albumin/Globulin Ratio 1.3 Urine Color YELLOW Urine Appearance CLEAR Urine pH 7.0 Urine Specific [place] 1.039 Urine Protein NEG Urine Glucose (UA) NEG Urine Ketones NEG Urine Occult Blood NEG Urine Nitrite NEG Urine Bilirubin NEG Urine Urobilinogen NEG Urine Leukocyte Esterase NEG Lactic Acid Level 0.9 mmol/L Test 03/24/17 22:54 03/25/17 05:10 Hemoglobin 14.1 g/dL 13.9 g/dL Hematocrit 41.2 % 40.0 % White Blood Count 6.54 K/uL Red Blood Count 4.63 M/uL Mean Corpuscular Volume 86.4 fL Mean Corpuscular Hemoglobin 30.0 pg Mean Corpuscular Hemoglobin Concent 34.8 g/dl Platelet Count 233 K/uL Mean Platelet Volume 9.5 fL Neutrophils (%) (Auto) 45.5 % Lymphocytes (%) (Auto) 34.7 % Monocytes (%) (Auto) 15.7 % Eosinophils (%) (Auto) 3.1 % Basophils (%) (Auto) 0.5 % Neutrophils # (Auto) 2.98 K/uL Lymphocytes # (Auto) 2.27 K/uL Monocytes # (Auto) 1.03 K/uL Eosinophils # (Auto) 0.20 K/uL Basophils # (Auto) 0.03 K/uL RDW Standard Deviation 43.5 fL RDW Coefficient of Variation 13.9 % Immature Granulocyte % (Auto) 0.5 % Immature Granulocyte # (Auto) 0.03 K/uL Sodium Level 141 mmol/L Potassium Level 3.5 mmol/L Chloride Level 107 mmol/L Carbon Dioxide Level 27 mmol/L Anion Gap 7.0 mmol/L Blood Urea Nitrogen 8 mg/dl Creatinine 0.77 mg/dl Est Creatinine Clear Calc Drug Dose 113.4 ml/min Estimated GFR () 140.1 Estimated GFR (Non- 120.9 BUN/Creatinine Ratio 10.9 Random Glucose 95 mg/dl Calcium Level 8.2 mg/dl Impression Patient is a 31 year old male with small bowel intussusception w/o obstruction. Possible differential diagnostic causes of the intussusception include small bowel polyp, diverticulum, mass, Crohn's Disease. This could also be transient and of doubtful clinical significance. Plan 1. Surgical opinion reviewed. 2. When cleared for clear liquids by surgery and tolerating them well, then would recommend a small bowel series. 3. Will consider outpatient VCE and or repeat EGD/Colonoscopy dependent on clinical course and results of the small bowel series. I have personally seen and examined the patient with AVELINA Smith. Her note reflects my exam and findings. I agree with her impression and plan. I think a small bowel follow through would be helpful to look for small bowel lesion as a lead point of intussusception but will defer to surgery to make sure it is not contraindicated. Dmitri Camacho M.D.
[2017-03-25] MEDS: NICOTINE 14 MG/24 HR TDSY TD SCH (09:16)
--- NOTE | 2017-03-25 10:44 | Progress Note ---
Medicine Progress Note Date & Time of Visit: Mar 25, 2017 at 10:34. Subjective seen with family at bedside, not in distress states he feels the same as yesterday still having the same abdominal pain, no BM/flatus no nausea had some mild dyspnea this morning, improved now has some cough with white sputum, but improving denies other symptoms Objective Last 8 Hrs Date Time Temp Pulse Resp B/P (MAP) Pulse Ox O2 Delivery O2 Flow Rate FiO2 03/25/17 08:10 95 Room Air 03/25/17 07:39 36.6 60 18 121/90 (100) 95 Room Air 03/25/17 07:15 67 14 98 Room Air 03/25/17 04:07 36.4 58 15 90/57 (68) 97 Room Air 03/25/17 04:00 Room Air Physical Exam: General- oriented x 3, not in distress, speaks in sentences with no effort Eyes- anicteric Neck- supple, no JVD Lungs- clear breath sounds bilaterally Heart- regular rhythm; no murmur, normal rate Abdomen- hypoactive bowel sounds, non distended, soft, mild tenderness on all quadrants Extremities- no pretibial edema, no calf tenderness Neuro- alert, oriented x 3; no gross focal deficits Skin- warm & dry Laboratory Results: Last 24 Hours Test 03/24/17 11:00 03/24/17 16:13 03/24/17 16:20 03/24/17 17:41 White Blood Count 6.74 K/uL Red Blood Count 5.30 M/uL Hemoglobin 16.0 g/dL 15.1 g/dL Hematocrit 45.6 % 40.9 % Mean Corpuscular Volume 86.0 fL Mean Corpuscular Hemoglobin 30.2 pg Mean Corpuscular Hemoglobin Concent 35.1 g/dl Platelet Count 300 K/uL Mean Platelet Volume 9.7 fL Neutrophils (%) (Auto) 85.1 % Lymphocytes (%) (Auto) 9.6 % Monocytes (%) (Auto) 3.9 % Eosinophils (%) (Auto) 0.1 % Basophils (%) (Auto) 0.3 % Neutrophils # (Auto) 5.73 K/uL Lymphocytes # (Auto) 0.65 K/uL Monocytes # (Auto) 0.26 K/uL Eosinophils # (Auto) 0.01 K/uL Basophils # (Auto) 0.02 K/uL RDW Standard Deviation 43.0 fL RDW Coefficient of Variation 13.7 % Immature Granulocyte % (Auto) 1.0 % Immature Granulocyte # (Auto) 0.07 K/uL Prothrombin Time 10.6 SECONDS Prothromb Time International Ratio 1.0 Activated Partial Thromboplast Time 27.7 SECONDS Partial Thromboplastin Ratio 1.1 Sodium Level 137 mmol/L Potassium Level 4.3 mmol/L Chloride Level 105 mmol/L Carbon Dioxide Level 26 mmol/L Anion Gap 6.0 mmol/L Blood Urea Nitrogen 11 mg/dl Creatinine 0.77 mg/dl Est Creatinine Clear Calc Drug Dose 116.5 ml/min Estimated GFR () 140.1 Estimated GFR (Non- 120.9 BUN/Creatinine Ratio 14.0 Random Glucose 117 mg/dl Calcium Level 9.6 mg/dl Total Bilirubin 0.5 mg/dl Aspartate Amino Transf (AST/SGOT) 12 U/L Alanine Aminotransferase (ALT/SGPT) 17 U/L Alkaline Phosphatase 73 U/L Total Protein 8.0 gm/dl Albumin 4.5 gm/dl Globulin 3.5 gm/dl Albumin/Globulin Ratio 1.3 Urine Color YELLOW Urine Appearance CLEAR Urine pH 7.0 Urine Specific [place] 1.039 Urine Protein NEG Urine Glucose (UA) NEG Urine Ketones NEG Urine Occult Blood NEG Urine Nitrite NEG Urine Bilirubin NEG Urine Urobilinogen NEG Urine Leukocyte Esterase NEG Lactic Acid Level 0.9 mmol/L Test 03/24/17 22:54 03/25/17 05:10 Hemoglobin 14.1 g/dL 13.9 g/dL Hematocrit 41.2 % 40.0 % White Blood Count 6.54 K/uL Red Blood Count 4.63 M/uL Mean Corpuscular Volume 86.4 fL Mean Corpuscular Hemoglobin 30.0 pg Mean Corpuscular Hemoglobin Concent 34.8 g/dl Platelet Count 233 K/uL Mean Platelet Volume 9.5 fL Neutrophils (%) (Auto) 45.5 % Lymphocytes (%) (Auto) 34.7 % Monocytes (%) (Auto) 15.7 % Eosinophils (%) (Auto) 3.1 % Basophils (%) (Auto) 0.5 % Neutrophils # (Auto) 2.98 K/uL Lymphocytes # (Auto) 2.27 K/uL Monocytes # (Auto) 1.03 K/uL Eosinophils # (Auto) 0.20 K/uL Basophils # (Auto) 0.03 K/uL RDW Standard Deviation 43.5 fL RDW Coefficient of Variation 13.9 % Immature Granulocyte % (Auto) 0.5 % Immature Granulocyte # (Auto) 0.03 K/uL Sodium Level 141 mmol/L Potassium Level 3.5 mmol/L Chloride Level 107 mmol/L Carbon Dioxide Level 27 mmol/L Anion Gap 7.0 mmol/L Blood Urea Nitrogen 8 mg/dl Creatinine 0.77 mg/dl Est Creatinine Clear Calc Drug Dose 113.4 ml/min Estimated GFR () 140.1 Estimated GFR (Non- 120.9 BUN/Creatinine Ratio 10.9 Random Glucose 95 mg/dl Calcium Level 8.2 mg/dl Date/Time Source Procedure Growth Status 03/24/17 12:36 Stool C.difficile Toxin B Gene (PCR) - Final No C. difficile toxin B gene detected Complete 03/24/17 12:36 Stool WBC Smear - Final Resulted 03/24/17 12:36 Stool Shiga Toxin Test Pending Resulted 03/24/17 12:36 Stool Stool Culture Pending Resulted Assessment & Plan 31 year old male with history of Smoking presenting with abdominal pain that started this morning. ABDOMINAL PAIN WITH HEMATOCHEZIA LIKELY FROM INTUSSUSCEPTION - about the same as yesterday currently on NPO, IV fluids - will discuss with Surgery SVC, appreciate the recommendations r/o GI BLEED - father has Crohn's - no recurrence after 1 episode at home - on NPO, IV Protonix drip, IV Fluids - GI consulted, appreciate the recommendations plan for small bowel series once diet advanced may need EGD/Colonoscopy WHEEZING - present smoker - recently finished Azithromycin, Prednisone for possible whooping cough, still smoking - was wheezing on admission, now resolved after nebs q6 started - afebrile, no leukocytosis will hold off on antibiotics/steroid, cough and mild wheeze maybe residual now check sputum cultures though and monitor SMOKER - Nicotine patch DVT Proph SCDs Full Code Disposition pending anticipate d/c home when cleared by Surgery and GI ff up with PCP, GI, Gen Surg Current Inpatient Medications: Current Inpatient Medications Medications (Trade) Dose Ordered Sig/Power Route Start Time Stop Time Status Last Admin Dose Admin Ioversol (Optiray 320) 100 ml UD PRN IV 03/24/17 12:00 03/28/17 11:59 Dextrose/Sodium Chloride 1,000 ml @ 100 mls/hr Q10H IV 03/24/17 18:30 04/23/17 18:29 03/25/17 04:25 100 MLS/HR Hydromorphone HCl (Dilaudid Inj) 0.5 mg Q3H PRN IV 03/24/17 17:15 04/07/17 17:14 03/25/17 06:40 0.5 MG Nicotine (Nicoderm Cq 14MG Patch) 1 patch QAM TD 03/25/17 09:00 04/24/17 08:59 03/25/17 09:16 1 PATCH Miscellaneous (Remove Nicoderm Patch) 1 ea HS N/A 03/24/17 21:00 04/23/17 20:59 03/24/17 21:00 1 EA Pantoprazole Sodium 40 mg/ Dextrose 100 ml @ 20 mls/hr Q5H IV 03/24/17 18:00 04/23/17 17:59 03/25/17 09:16 20 MLS/HR Ipratropium Center Line (Atrovent 0.02% 0.5MG/2.5ML Neb) 0.5 mg Q6R INH 03/24/17 21:00 04/23/17 20:59 03/25/17 07:15 0.5 MG Levalbuterol (Xopenex 1.25MG/ 0.5ML Neb) 1.25 mg Q6R INH 03/24/17 21:00 04/23/17 20:59 03/25/17 07:15 1.25 MG Ondansetron HCl (Zofran Inj) 4 mg Q6H PRN IV 03/24/17 22:00 04/23/17 21:59 03/24/17 23:00 4 MG
[2017-03-25 12:54] LABS: HEMATOCRIT 37.9 % (42-52)
[2017-03-25] MEDS ORDERED: BuPROPion SR 100 MG TABCR PO ONE (13:45)
--- NOTE | 2017-03-25 16:31 | Surgery Progress Note ---
Surgery Progress Note Date of Service Mar 25, 2017. Subjective Post OP Day: HD # 1 "Not feeling well" "Abdominal pain and cramping, unsure if it is because he hasn't ate in awhile" + nausea, no vomiting no bowel movement or flatus Objective Vital Signs: Date Time Temp Pulse Resp B/P (MAP) Pulse Ox O2 Delivery O2 Flow Rate FiO2 03/25/17 14:16 63 14 98 Room Air 03/25/17 12:00 Room Air 03/25/17 10:54 36.5 53 18 105/88 (94) 99 Room Air 03/25/17 08:10 95 Room Air 03/25/17 07:39 36.6 60 18 121/90 (100) 95 Room Air 03/25/17 07:15 67 14 98 Room Air 03/25/17 04:07 36.4 58 15 90/57 (68) 97 Room Air 03/25/17 04:00 Room Air 03/24/17 23:59 Room Air 03/24/17 23:03 36.5 45 18 93/58 (70) 98 Room Air 03/24/17 20:00 Room Air 03/24/17 19:20 57 14 97 Room Air 03/24/17 18:15 36.5 61 16 116/80 Room Air 03/24/17 17:40 61 15 111/82 97 03/24/17 17:31 61 15 111/82 97 Room Air General Appearance: WD/WN, no apparent distress Head: normocephalic, atraumatic Neck: trachea midline Respiratory/Chest: no respiratory distress, no accessory muscle use Abdomen: non distended, soft, + tenderness (mild tenderness on deep palpation, no rigidity, rebound, guarding, or peritonitis) Laboratory Results: Results Past 24 Hours Test 03/24/17 17:41 03/24/17 22:54 03/25/17 05:10 03/25/17 11:51 Range/Units Hemoglobin 15.1 14.1 13.9 13.5 14.0-18.0 g/dL Hematocrit 40.9 41.2 40.0 37.9 42-52 % White Blood Count 6.54 4.8-10.8 K/uL Red Blood Count 4.63 4.7-6.1 M/uL Mean Corpuscular Volume 86.4 80-100 fL Mean Corpuscular Hemoglobin 30.0 25-34 pg Mean Corpuscular Hemoglobin Concent 34.8 32-36 g/dl Platelet Count 233 130-400 K/uL Mean Platelet Volume 9.5 7.4-10.4 fL Neutrophils (%) (Auto) 45.5 % Lymphocytes (%) (Auto) 34.7 % Monocytes (%) (Auto) 15.7 % Eosinophils (%) (Auto) 3.1 % Basophils (%) (Auto) 0.5 % Neutrophils # (Auto) 2.98 1.4-6.5 K/uL Lymphocytes # (Auto) 2.27 1.2-3.4 K/uL Monocytes # (Auto) 1.03 0.11-0.59 K/uL Eosinophils # (Auto) 0.20 0-0.5 K/uL Basophils # (Auto) 0.03 0-0.2 K/uL RDW Standard Deviation 43.5 36.4-46.3 fL RDW Coefficient of Variation 13.9 11.5-14.5 % Immature Granulocyte % (Auto) 0.5 % Immature Granulocyte # (Auto) 0.03 0.00-0.02 K/uL Sodium Level 141 136-145 mmol/L Potassium Level 3.5 3.5-5.1 mmol/L Chloride Level 107 98-107 mmol/L Carbon Dioxide Level 27 21-32 mmol/L Anion Gap 7.0 3-11 mmol/L Blood Urea Nitrogen 8 7-18 mg/dl Creatinine 0.77 0.60-1.40 mg/dl Est Creatinine Clear Calc Drug Dose 113.4 ml/min Estimated GFR () 140.1 Estimated GFR (Non- 120.9 BUN/Creatinine Ratio 10.9 10-20 Random Glucose 95 70-99 mg/dl Calcium Level 8.2 8.5-10.1 mg/dl Assessment & Plan 31 year-old male presented to emergency department with rectal bleeding and abdominal pain. CT scan concerning for jejunal intussusception two separate areas, no evidence of obstruction. Vitals stable, no leukocytosis. No further rectal bleeding. Family history of Crohn's disease. Plan: No acute surgical intervention required. Continue IV pain management, IV fluids, and IV Zofran as needed Will trail clear liquids Small bowel series per GI when appropriate continue current medical management Will continue to follow Dr. Redding has seen and examined patient, agrees with above. I interviewed and examined this patient and I agree with the above note. Patient admitted with chronic abdominal pain and intermittent rectal bleeding. He has a family history of Crohn's. GI has recommended an upper GI with small bowel follow-through. I think that's reasonable. The evidence of intussusception can also be reevaluated with that study. We'll await the result.
[2017-03-25] MEDS: BuPROPion SR 100 MG TABCR PO SCH (20:21)
[2017-03-26] VITALS (11 sets, daily range): BP systolic 100–115; BP diastolic 43–87; PULSE 54–85; TEMP 36.3–36.7; O2SAT 96–100
[2017-03-26] MEDS: HYDROmorphone INJ 0.5 MG/0.5 ML SYR IV PRN ×6 (01:28→20:16)
[2017-03-26] MEDS: LEVALBUTEROL 1.25MG/0.5ML NEB INH SCH ×4 (03:00→20:50)
[2017-03-26] MEDS: IPRATROPIUM BROMIDE NEB SOLN 0.02% 2.5 ML VIAL INH SCH ×4 (03:00→20:50)
[2017-03-26] MEDS: PANTOprazole INJ 40 MG in DEXTROSE 5% 100ML IV SCH ×4 (04:35→19:47)
[2017-03-26] MEDS: D5W AND NSS 1,000 ML IV SCH ×3 (04:36→21:38)
[2017-03-26] MEDS: ONDANSETRON INJ 2 MG/ML 2 ML VIAL IV PRN ×2 (05:52→17:26)
[2017-03-26 07:06] LABS: BASO % 0.6 %; BASO ABS # 0.03 K/uL (0-0.2); COMPLETE YES; EOS % 2.5 %; HEMATOCRIT 38.3 % (42-52); IG% 0.2 %; LYMPH % 26.6 %; LYMPH ABS # 1.36 K/uL (1.2-3.4); MEAN CELL VOLUME 87.2 fL (80-100); MEAN CORPUSCULAR HEMOGLOBIN 29.8 pg (25-34); MEAN CORPUSCULAR HGB CONC 34.2 g/dl (32-36); MEAN PLATELET VOLUME 9.5 fL (7.4-10.4); MONO % 14.3 %; NEUT % 55.8 %; PLATELET COUNT 206 K/uL (130-400); RED BLOOD COUNT 4.39 M/uL (4.7-6.1); WHITE BLOOD COUNT 5.12 K/uL (4.8-10.8)
[2017-03-26 07:44] LABS: CREATININE 0.66 mg/dl (0.60-1.40); MAGNESIUM 2.2 mg/dl (1.8-2.4); POTASSIUM 3.8 mmol/L (3.5-5.1)
[2017-03-26] MEDS: BuPROPion SR 100 MG TABCR PO SCH ×2 (08:32→20:43)
[2017-03-26] MEDS: NICOTINE 14 MG/24 HR TDSY TD SCH (08:32)
--- NOTE | 2017-03-26 11:52 | Surgery Progress Note ---
Surgery Progress Note Date of Service Mar 26, 2017. Subjective Post OP Day: HD # 2 states he had some nausea and abdominal pain this morning, wasn't taking in clears that well Did okay last evening with clears No vomiting now passing a little flatus, no bowel movement Unsure if nauseated because of being hungry, didn't have food after taking Wellbutrin, or from the liquids Did okay with some pudding and coffee an hour ago. Objective Vital Signs: Date Time Temp Pulse Resp B/P (MAP) Pulse Ox O2 Delivery O2 Flow Rate FiO2 03/26/17 08:00 100 Room Air 03/26/17 07:52 36.6 59 16 102/59 (73) 100 03/26/17 07:06 54 16 98 Room Air 03/26/17 04:12 36.4 61 15 107/43 (64) 96 Room Air 03/26/17 04:00 Room Air 03/25/17 23:59 Room Air 03/25/17 23:44 36.3 62 15 94/58 (70) 96 Room Air 03/25/17 20:08 36.5 76 20 137/90 (106) 97 Room Air 03/25/17 20:00 97 Room Air 03/25/17 19:28 65 16 98 Room Air 03/25/17 16:43 36.7 59 16 116/69 (85) 99 Room Air 03/25/17 16:05 99 Room Air 03/25/17 14:16 63 14 98 Room Air 03/25/17 12:00 Room Air General Appearance: WD/WN, no apparent distress Head: normocephalic, atraumatic Neck: trachea midline Respiratory/Chest: no respiratory distress, no accessory muscle use Abdomen: non distended, soft, + tenderness (In the RLQ no rebound or peritonitis or rigidity) Laboratory Results: Results Past 24 Hours Test 03/25/17 11:51 03/26/17 06:26 Range/Units Hemoglobin 13.5 13.1 14.0-18.0 g/dL Hematocrit 37.9 38.3 42-52 % White Blood Count 5.12 4.8-10.8 K/uL Red Blood Count 4.39 4.7-6.1 M/uL Mean Corpuscular Volume 87.2 80-100 fL Mean Corpuscular Hemoglobin 29.8 25-34 pg Mean Corpuscular Hemoglobin Concent 34.2 32-36 g/dl Platelet Count 206 130-400 K/uL Mean Platelet Volume 9.5 7.4-10.4 fL Neutrophils (%) (Auto) 55.8 % Lymphocytes (%) (Auto) 26.6 % Monocytes (%) (Auto) 14.3 % Eosinophils (%) (Auto) 2.5 % Basophils (%) (Auto) 0.6 % Neutrophils # (Auto) 2.86 1.4-6.5 K/uL Lymphocytes # (Auto) 1.36 1.2-3.4 K/uL Monocytes # (Auto) 0.73 0.11-0.59 K/uL Eosinophils # (Auto) 0.13 0-0.5 K/uL Basophils # (Auto) 0.03 0-0.2 K/uL RDW Standard Deviation 44.1 36.4-46.3 fL RDW Coefficient of Variation 13.7 11.5-14.5 % Immature Granulocyte % (Auto) 0.2 % Immature Granulocyte # (Auto) 0.01 0.00-0.02 K/uL Sodium Level 142 136-145 mmol/L Potassium Level 3.8 3.5-5.1 mmol/L Chloride Level 109 98-107 mmol/L Carbon Dioxide Level 27 21-32 mmol/L Anion Gap 6.0 3-11 mmol/L Blood Urea Nitrogen 5 7-18 mg/dl Creatinine 0.66 0.60-1.40 mg/dl Est Creatinine Clear Calc Drug Dose 135.9 ml/min Estimated GFR () 149.3 Estimated GFR (Non- 128.8 BUN/Creatinine Ratio 7.0 10-20 Random Glucose 91 70-99 mg/dl Calcium Level 8.0 8.5-10.1 mg/dl Magnesium Level 2.2 1.8-2.4 mg/dl Microbiology Results 03/25/17 Gram Stain - Final, Resulted 03/25/17 Sputum Culture, Resulted Pending Assessment & Plan 31 year-old male presented to emergency department with rectal bleeding and abdominal pain. CT scan concerning for jejunal intussusception two separate areas, no evidence of obstruction. Vitals stable, no leukocytosis. No further rectal bleeding. Family history of Crohn's disease. Plan: No acute surgical intervention required. Continue IV pain management, IV fluids, and IV Zofran as needed Continue clear liquids for lunch , if does well without nausea may be able to tolerate small bowel series this afternoon continue current medical management Will re-evaluate with Dr. Redding this afternoon RE-evaluated at 2:[address] Redding Feeling well Tolerated clears for lunch No nausea Pain controlled with Dilaudid Plan for Upper GI and small bowel series Continue clears Continue pain management continue medical management Dr. Redding has seen patient and agrees with above.
--- NOTE | 2017-03-26 17:46 | Progress Note ---
Medicine Progress Note Date & Time of Visit: Mar 26, 2017 at 17:25. Subjective Patient reports feeling less nausea today and no vomiting. No overnight events noted. Patient was seen earlier today just after lunch time, states he feels some of the nausea is related to hunger and not having solids. He has not had a BM since Saturday. Breathing has improved, symptoms of productive cough and SOB are generally worse in the mornings as per patient. He denies any new complaints. Objective Last 8 Hrs Date Time Temp Pulse Resp B/P (MAP) Pulse Ox O2 Delivery O2 Flow Rate FiO2 03/26/17 15:30 36.7 73 18 100/57 (71) 97 Room Air 03/26/17 14:35 66 16 98 Room Air 03/26/17 12:18 36.3 75 16 115/87 (96) 98 Room Air 03/26/17 12:00 97 Room Air Physical Exam: General: adult Head: atraumatic, normocephalic Eyes: PERRL, EOMI, anicteric, + ocular nystagmus Neck: supple, no JVD, no carotids bruits appreciated Lungs: Mild rhonchi bilaterally; no chest wall pain/tenderness to palpation noted Heart: RR; no murmur, no gallop, no rub appreciated, S1 and S2 auscultated Abdomen: soft, normal bowel sounds, no palpable masses, no notable hepatosplenomegaly; was slightly tender in periumbilical region Extremities: no edema, no calf tenderness Neuro: alert, oriented x 3; no facial palsy; no dysarthria; no acute focal deficits noted Skin: warm, dry, no rashes Laboratory Results: Last 24 Hours Test 03/26/17 06:26 White Blood Count 5.12 K/uL Red Blood Count 4.39 M/uL Hemoglobin 13.1 g/dL Hematocrit 38.3 % Mean Corpuscular Volume 87.2 fL Mean Corpuscular Hemoglobin 29.8 pg Mean Corpuscular Hemoglobin Concent 34.2 g/dl Platelet Count 206 K/uL Mean Platelet Volume 9.5 fL Neutrophils (%) (Auto) 55.8 % Lymphocytes (%) (Auto) 26.6 % Monocytes (%) (Auto) 14.3 % Eosinophils (%) (Auto) 2.5 % Basophils (%) (Auto) 0.6 % Neutrophils # (Auto) 2.86 K/uL Lymphocytes # (Auto) 1.36 K/uL Monocytes # (Auto) 0.73 K/uL Eosinophils # (Auto) 0.13 K/uL Basophils # (Auto) 0.03 K/uL RDW Standard Deviation 44.1 fL RDW Coefficient of Variation 13.7 % Immature Granulocyte % (Auto) 0.2 % Immature Granulocyte # (Auto) 0.01 K/uL Sodium Level 142 mmol/L Potassium Level 3.8 mmol/L Chloride Level 109 mmol/L Carbon Dioxide Level 27 mmol/L Anion Gap 6.0 mmol/L Blood Urea Nitrogen 5 mg/dl Creatinine 0.66 mg/dl Est Creatinine Clear Calc Drug Dose 135.9 ml/min Estimated GFR () 149.3 Estimated GFR (Non- 128.8 BUN/Creatinine Ratio 7.0 Random Glucose 91 mg/dl Calcium Level 8.0 mg/dl Magnesium Level 2.2 mg/dl Date/Time Source Procedure Growth Status 03/25/17 20:00 Sputum Expectorated Sputum Gram Stain - Final Resulted 03/25/17 20:00 Sputum Expectorated Sputum Sputum Culture - Preliminary HEAVY NORMAL LEVI Present, Final Rep... Resulted Assessment & Plan ABDOMINAL PAIN: SMALL BOWEL INTUSSUSCEPTION W/O OBSTRUCTION: -per CT scan 2 short segments of jejunojejunal intussusception noted without obstruction and of unknown significance -patient is now on clear liquids with persistent mild nausea -GI and Surgery consulted, appreciate recs -patient to have small bowel follow thru, likely tomorrow -no plans for surgical intervention -etiology of intussusception unclear, patient did also have hematochezia prior to admission and has had longstanding history of chronic abdominal pain, and alternating bouts of constipation and diarrhea. WHEEZING: -s/p recent treatment for whopping cough, completed course of azithro + steroids -symptoms improving with scheduled duonebs -no known history of lung disease however patient is a daily smoker TOBACCO DEPENDENCE: -smoking cessation -continue bupropion Current Inpatient Medications: Current Inpatient Medications Medications (Trade) Dose Ordered Sig/Power Route Start Time Stop Time Status Last Admin Dose Admin Ioversol (Optiray 320) 100 ml UD PRN IV 03/24/17 12:00 03/28/17 11:59 Dextrose/Sodium Chloride 1,000 ml @ 125 mls/hr Q8H IV 03/24/17 18:30 11/7/17 18:29 03/26/17 13:38 125 MLS/HR Hydromorphone HCl (Dilaudid Inj) 0.5 mg Q3H PRN IV 03/24/17 17:15 04/07/17 17:14 03/26/17 17:12 0.5 MG Nicotine (Nicoderm Cq 14MG Patch) 1 patch QAM TD 03/25/17 09:00 04/24/17 08:59 03/26/17 08:32 1 PATCH Miscellaneous (Remove Nicoderm Patch) 1 ea HS N/A 03/24/17 21:00 04/23/17 20:59 03/25/17 20:21 1 EA Pantoprazole Sodium 40 mg/ Dextrose 100 ml @ 20 mls/hr Q5H IV 03/24/17 18:00 04/23/17 17:59 03/26/17 13:37 20 MLS/HR Ipratropium [place] (Atrovent 0.02% 0.5MG/2.5ML Neb) 0.5 mg Q6R INH 03/24/17 21:00 04/23/17 20:59 03/26/17 14:24 0.5 MG Levalbuterol (Xopenex 1.25MG/ 0.5ML Neb) 1.25 mg Q6R INH 03/24/17 21:00 04/23/17 20:59 03/26/17 14:24 1.25 MG Ondansetron HCl (Zofran Inj) 4 mg Q6H PRN IV 03/24/17 22:00 04/23/17 21:59 03/26/17 05:52 4 MG Bupropion HCl (Wellbutrin-Sr Tab) 100 mg BID PO 03/25/17 21:00 04/24/17 20:59 03/26/17 08:32 100 MG
[2017-03-27] VITALS (11 sets, daily range): BP systolic 100–136; BP diastolic 59–85; PULSE 62–94; TEMP 36.6–37.1; O2SAT 95–98
[2017-03-27] MEDS: PANTOprazole INJ 40 MG in DEXTROSE 5% 100ML IV SCH ×5 (00:38→20:50)
[2017-03-27] MEDS: LEVALBUTEROL 1.25MG/0.5ML NEB INH SCH ×4 (03:00→19:15)
[2017-03-27] MEDS: IPRATROPIUM BROMIDE NEB SOLN 0.02% 2.5 ML VIAL INH SCH ×4 (03:00→19:15)
[2017-03-27] MEDS: D5W AND NSS 1,000 ML IV SCH ×3 (05:42→20:50)
[2017-03-27 05:47] LABS: BASO % 0.3 %; BASO ABS # 0.02 K/uL (0-0.2); COMPLETE YES; EOS % 2.5 %; HEMATOCRIT 41.8 % (42-52); IG% 0.3 %; LYMPH % 15.5 %; LYMPH ABS # 1.11 K/uL (1.2-3.4); MEAN CELL VOLUME 87.4 fL (80-100); MEAN CORPUSCULAR HEMOGLOBIN 30.1 pg (25-34); MEAN CORPUSCULAR HGB CONC 34.4 g/dl (32-36); MEAN PLATELET VOLUME 9.4 fL (7.4-10.4); MONO % 13.3 %; NEUT % 68.1 %; PLATELET COUNT 225 K/uL (130-400); RED BLOOD COUNT 4.78 M/uL (4.7-6.1); WHITE BLOOD COUNT 7.16 K/uL (4.8-10.8)
[2017-03-27 06:09] LABS: BUN/CREATININE RATIO 2.9 (10-20); CALCIUM 8.7 mg/dl (8.5-10.1); CREATININE 0.83 mg/dl (0.60-1.40); MAGNESIUM 2.3 mg/dl (1.8-2.4); POTASSIUM 4.3 mmol/L (3.5-5.1)
[2017-03-27] MEDS: NICOTINE 14 MG/24 HR TDSY TD SCH (09:00)
--- NOTE | 2017-03-27 09:23 | Gastroenterology Progress Note ---
Progress Note Date of Service: Mar 27, 2017 Subjective Pt evaluation today including: conversation w/ patient, physical exam, chart review, lab review Pt was seen and evaluated, chart reviewed. Was cleared by surgery for small bowel series --> still had contrast in stomach --> waiting surgical eval this AM. Pt tells me his symptoms are unchanged. He has constant fermin-umbilical pain. Can radiate to RLQ. Mild nausea, no vomiting. Has not had a BM since admission. No further bleeding Tells me he is not passing gas very often. He is hungry, wants regular diet. Tells me his bowels alternate between diarrhea and constipation. That has been normal for him for quite sometimes. Can have 6+ bloody stools daily for a few days with abdominal pain. At other times he will have formed, nonbloody stools 1-[address] ABD 03/24/17: No evidence of appendicitis. Two adjacent short segment jejunojejunal intussusceptions without evidence of bowel obstruction. No gross evidence of a lead point or bowel wall thickening. These are of uncertain clinical significance as short segment small\ bowel intussusception is not uncommonly seen and can be asymptomatic. Mild circumferential bladder wall thickening. Correlate with urinalysis to exclude cystitis. Review of Systems Constitutional: No fever, No chills Respiratory: No cough, No shortness of breath Cardiac: No chest pain, No edema Abdomen: + pain, + nausea, + constipation, No vomiting, No diarrhea, No GI bleeding Skin: No rash, No itch Medications Current Inpatient Medications Medications (Trade) Dose Ordered Sig/Power Route Start Time Stop Time Status Last Admin Dose Admin Ioversol (Optiray 320) 100 ml UD PRN IV 03/24/17 12:00 03/28/17 11:59 Dextrose/Sodium Chloride 1,000 ml @ 125 mls/hr Q8H IV 03/24/17 18:30 04/23/17 18:29 03/27/17 05:42 125 MLS/HR Hydromorphone HCl (Dilaudid Inj) 0.5 mg Q3H PRN IV 03/24/17 17:15 04/07/17 17:14 03/26/17 20:16 0.5 MG Nicotine (Nicoderm Cq 14MG Patch) 1 patch QAM TD 03/25/17 09:00 04/24/17 08:59 03/26/17 08:32 1 PATCH Miscellaneous (Remove Nicoderm Patch) 1 ea HS N/A 03/24/17 21:00 04/23/17 20:59 03/26/17 20:43 1 EA Pantoprazole Sodium 40 mg/ Dextrose 100 ml @ 20 mls/hr Q5H IV 03/24/17 18:00 04/23/17 17:59 03/27/17 04:56 20 MLS/HR Ipratropium [place] (Atrovent 0.02% 0.5MG/2.5ML Neb) 0.5 mg Q6R INH 03/24/17 21:00 04/23/17 20:59 03/27/17 07:00 0.5 MG Levalbuterol (Xopenex 1.25MG/ 0.5ML Neb) 1.25 mg Q6R INH 03/24/17 21:00 04/23/17 20:59 03/27/17 07:01 1.25 MG Ondansetron HCl (Zofran Inj) 4 mg Q6H PRN IV 03/24/17 22:00 04/23/17 21:59 03/26/17 17:26 4 MG Bupropion HCl (Wellbutrin-Sr Tab) 100 mg BID PO 03/25/17 21:00 04/24/17 20:59 03/26/17 20:43 100 MG Objective Vital Signs Date Time Temp Pulse Resp B/P (MAP) Pulse Ox O2 Delivery O2 Flow Rate FiO2 03/27/17 08:00 Room Air 03/27/17 07:53 36.7 69 18 100/59 (73) 97 Room Air 03/27/17 07:00 71 16 98 Room Air 03/27/17 04:00 95 Room Air 03/27/17 03:48 36.9 62 14 105/72 (83) 95 Room Air 03/27/17 00:09 37.1 70 14 102/59 (73) 96 Room Air 03/27/17 00:01 96 Room Air 03/26/17 20:00 96 Room Air 03/26/17 19:53 36.4 85 18 106/82 (90) 96 Room Air 03/26/17 16:00 96 Room Air 03/26/17 15:30 36.7 73 18 100/57 (71) 97 Room Air 03/26/17 14:35 66 16 98 Room Air 03/26/17 12:18 36.3 75 16 115/87 (96) 98 Room Air 03/26/17 12:00 97 Room Air Physical Exam General Appearance: no apparent distress (pt is up walking around his room) Eyes: PERRL ENT: hearing grossly normal Neck: supple Respiratory/Chest: lungs clear, normal breath sounds Cardiovascular: regular rate, rhythm, no edema Abdomen: soft, no organomegaly, no pulsatile mass, + abnormal bowel sounds ( hypoactive), + tenderness (periumbiliar and right RLQ) Neurologic/Psych: alert, normal mood/affect, oriented x 3 Skin: normal color, no jaundice, warm/dry Laboratory Results Last 24 Hours Test 03/27/17 05:26 White Blood Count 7.16 K/uL Red Blood Count 4.78 M/uL Hemoglobin 14.4 g/dL Hematocrit 41.8 % Mean Corpuscular Volume 87.4 fL Mean Corpuscular Hemoglobin 30.1 pg Mean Corpuscular Hemoglobin Concent 34.4 g/dl Platelet Count 225 K/uL Mean Platelet Volume 9.4 fL Neutrophils (%) (Auto) 68.1 % Lymphocytes (%) (Auto) 15.5 % Monocytes (%) (Auto) 13.3 % Eosinophils (%) (Auto) 2.5 % Basophils (%) (Auto) 0.3 % Neutrophils # (Auto) 4.88 K/uL Lymphocytes # (Auto) 1.11 K/uL Monocytes # (Auto) 0.95 K/uL Eosinophils # (Auto) 0.18 K/uL Basophils # (Auto) 0.02 K/uL RDW Standard Deviation 43.4 fL RDW Coefficient of Variation 13.6 % Immature Granulocyte % (Auto) 0.3 % Immature Granulocyte # (Auto) 0.02 K/uL Sodium Level 141 mmol/L Potassium Level 4.3 mmol/L Chloride Level 107 mmol/L Carbon Dioxide Level 28 mmol/L Anion Gap 6.0 mmol/L Blood Urea Nitrogen 2 mg/dl Creatinine 0.83 mg/dl Est Creatinine Clear Calc Drug Dose 108.0 ml/min Estimated GFR () 135.9 Estimated GFR (Non- 117.2 BUN/Creatinine Ratio 2.9 Random Glucose 100 mg/dl Calcium Level 8.7 mg/dl Magnesium Level 2.3 mg/dl Assessment and Plan Patient is a 31 year old male with small bowel intussusception w/o obstruction. Was to get a small bowel series today, but abdomen full of contrast. His symptoms have not significant improved. Continues to have nausea, inability to pass a BM and fermin-umbilical pain. Concern with partial SBO vs SBO. Intussusception: small bowel polyp vs diverticulum vs mass vs Crohn's Disease - surgical evaluation - attempt small bowel series tomorrow - outpatient EGD/Colonoscopy +/- VCE - GI will follow, please call with any questions or concerns I performed a history and physical examination of the patient. I have discussed the patient's case, impression and plan with AVELINA Bhandari. Her note reflects my findings and plan. Reviewed films with radiology. The intussusception appears to be a hard finding on CT scan and needs follow up. Will reattempt small bowel study tomorrow. Dmitri Camacho MD
[2017-03-27] MEDS: BuPROPion SR 100 MG TABCR PO SCH ×2 (09:46→20:06)
[2017-03-27] MEDS ORDERED: POLYETHYLENE (MIRALAX) 17 GM PACK ONE (11:40)
[2017-03-27] MEDS: POLYETHYLENE (MIRALAX) 17 GM PACK PO SCH (11:41)
--- NOTE | 2017-03-27 16:50 | Surgery Progress Note ---
Surgery Progress Note Date of Service Mar 27, 2017. Subjective Post OP Day: HD # 3 evaluated patient early this morning States he had nausea but was just given his Wellbutrin and always has nausea with taking that medication hungry, wants to eat regular food Did not eat his clear liquids for breakfast because he wanted regular food. Unable to do small bowel series given contrast still present from CT scan. Objective Vital Signs: Date Time Temp Pulse Resp B/P (MAP) Pulse Ox O2 Delivery O2 Flow Rate FiO2 03/27/17 14:54 36.7 94 16 136/82 (100) 96 Room Air 03/27/17 12:05 125/85 (98) 03/27/17 12:01 36.6 75 20 98 Room Air 03/27/17 11:30 36.6 75 20 98 03/27/17 11:12 36.9 62 18 130/80 (97) 97 Room Air 03/27/17 08:00 Room Air 03/27/17 07:53 36.7 69 18 100/59 (73) 97 Room Air 03/27/17 07:00 71 16 98 Room Air 03/27/17 04:00 95 Room Air 03/27/17 03:48 36.9 62 14 105/72 (83) 95 Room Air 03/27/17 00:09 37.1 70 14 102/59 (73) 96 Room Air 03/27/17 00:01 96 Room Air 03/26/17 20:00 96 Room Air 03/26/17 19:53 36.4 85 18 106/82 (90) 96 Room Air General Appearance: WD/WN, no apparent distress Head: normocephalic, atraumatic Neck: trachea midline Respiratory/Chest: no respiratory distress, no accessory muscle use Abdomen: non distended, soft, + tenderness (in the RLQ and periumbilical region , no rigidity, guarding, or rebound.) Laboratory Results: Results Past 24 Hours Test 03/27/17 05:26 Range/Units White Blood Count 7.16 4.8-10.8 K/uL Red Blood Count 4.78 4.7-6.1 M/uL Hemoglobin 14.4 14.0-18.0 g/dL Hematocrit 41.8 42-52 % Mean Corpuscular Volume 87.4 80-100 fL Mean Corpuscular Hemoglobin 30.1 25-34 pg Mean Corpuscular Hemoglobin Concent 34.4 32-36 g/dl Platelet Count 225 130-400 K/uL Mean Platelet Volume 9.4 7.4-10.4 fL Neutrophils (%) (Auto) 68.1 % Lymphocytes (%) (Auto) 15.5 % Monocytes (%) (Auto) 13.3 % Eosinophils (%) (Auto) 2.5 % Basophils (%) (Auto) 0.3 % Neutrophils # (Auto) 4.88 1.4-6.5 K/uL Lymphocytes # (Auto) 1.11 1.2-3.4 K/uL Monocytes # (Auto) 0.95 0.11-0.59 K/uL Eosinophils # (Auto) 0.18 0-0.5 K/uL Basophils # (Auto) 0.02 0-0.2 K/uL RDW Standard Deviation 43.4 36.4-46.3 fL RDW Coefficient of Variation 13.6 11.5-14.5 % Immature Granulocyte % (Auto) 0.3 % Immature Granulocyte # (Auto) 0.02 0.00-0.02 K/uL Sodium Level 141 136-145 mmol/L Potassium Level 4.3 3.5-5.1 mmol/L Chloride Level 107 98-107 mmol/L Carbon Dioxide Level 28 21-32 mmol/L Anion Gap 6.0 3-11 mmol/L Blood Urea Nitrogen 2 7-18 mg/dl Creatinine 0.83 0.60-1.40 mg/dl Est Creatinine Clear Calc Drug Dose 108.0 ml/min Estimated GFR () 135.9 Estimated GFR (Non- 117.2 BUN/Creatinine Ratio 2.9 10-20 Random Glucose 100 70-99 mg/dl Calcium Level 8.7 8.5-10.1 mg/dl Magnesium Level 2.3 1.8-2.4 mg/dl Assessment & Plan 31 year-old male presented to emergency department with rectal bleeding and abdominal pain. CT scan concerning for jejunal intussusception two separate areas, no evidence of obstruction. Vitals stable, no leukocytosis. No further rectal bleeding. Family history of Crohn's disease. Has been passing gas but no bowel movements. -unable to complete small bowel series today given there was contrast present from CT scan Plan: No acute surgical intervention required. Continue IV pain management, IV fluids, and IV Zofran as needed Advance diet to full liquids attempt small bowel series tomorrow continue current medical management Discussed with Dr. [place] who agrees with above
--- NOTE | 2017-03-27 18:25 | Progress Note ---
Medicine Progress Note Date & Time of Visit: Mar 27, 2017 at 18:25. Subjective Patient states he feels well today, is anxious to have the small bowel follow thru completed because he wants to eat solids. No overnight events noted. Has been ambulating without difficulty. Still has some abdominal pain but states it is at baseline. No other complaints at this time. Objective Last 8 Hrs Date Time Temp Pulse Resp B/P (MAP) Pulse Ox O2 Delivery O2 Flow Rate FiO2 03/27/17 16:00 Room Air 03/27/17 14:54 36.7 94 16 136/82 (100) 96 Room Air 03/27/17 12:05 125/85 (98) 03/27/17 12:01 36.6 75 20 98 Room Air 03/27/17 11:30 36.6 75 20 98 03/27/17 11:12 36.9 62 18 130/80 (97) 97 Room Air Physical Exam: General: adult Head: atraumatic, normocephalic Eyes: PERRL, EOMI, anicteric, + ocular nystagmus Neck: supple, no JVD, no carotids bruits appreciated Lungs: Mild rhonchi bilaterally; no chest wall pain/tenderness to palpation noted Heart: RR; no murmur, no gallop, no rub appreciated, S1 and S2 auscultated Abdomen: soft, normal bowel sounds, no palpable masses, no notable hepatosplenomegaly; slightly tender to palpation in periumbilical region Extremities: no edema, no calf tenderness Neuro: alert, oriented x 3; no facial palsy; no dysarthria; no acute focal deficits noted Skin: warm, dry, no rashes Laboratory Results: Last 24 Hours Test 03/27/17 05:26 White Blood Count 7.16 K/uL Red Blood Count 4.78 M/uL Hemoglobin 14.4 g/dL Hematocrit 41.8 % Mean Corpuscular Volume 87.4 fL Mean Corpuscular Hemoglobin 30.1 pg Mean Corpuscular Hemoglobin Concent 34.4 g/dl Platelet Count 225 K/uL Mean Platelet Volume 9.4 fL Neutrophils (%) (Auto) 68.1 % Lymphocytes (%) (Auto) 15.5 % Monocytes (%) (Auto) 13.3 % Eosinophils (%) (Auto) 2.5 % Basophils (%) (Auto) 0.3 % Neutrophils # (Auto) 4.88 K/uL Lymphocytes # (Auto) 1.11 K/uL Monocytes # (Auto) 0.95 K/uL Eosinophils # (Auto) 0.18 K/uL Basophils # (Auto) 0.02 K/uL RDW Standard Deviation 43.4 fL RDW Coefficient of Variation 13.6 % Immature Granulocyte % (Auto) 0.3 % Immature Granulocyte # (Auto) 0.02 K/uL Sodium Level 141 mmol/L Potassium Level 4.3 mmol/L Chloride Level 107 mmol/L Carbon Dioxide Level 28 mmol/L Anion Gap 6.0 mmol/L Blood Urea Nitrogen 2 mg/dl Creatinine 0.83 mg/dl Est Creatinine Clear Calc Drug Dose 108.0 ml/min Estimated GFR () 135.9 Estimated GFR (Non- 117.2 BUN/Creatinine Ratio 2.9 Random Glucose 100 mg/dl Calcium Level 8.7 mg/dl Magnesium Level 2.3 mg/dl Assessment & Plan ABDOMINAL PAIN: SMALL BOWEL INTUSSUSCEPTION W/O OBSTRUCTION: -per CT scan 2 short segments of jejunojejunal intussusception noted without obstruction and of unknown significance -patient is now on clear liquids with persistent mild nausea -GI and Surgery consulted, appreciate recs -patient to have small bowel follow thru, hopefully tomorrow if the contrast moves out -no plans for surgical intervention -etiology of intussusception unclear, patient did also have hematochezia prior to admission and has had longstanding history of chronic abdominal pain, and alternating bouts of constipation and diarrhea. -start miralax WHEEZING: resolved -s/p recent treatment for whopping cough, completed course of azithro + steroids -symptoms improving with scheduled duonebs -no known history of lung disease however patient is a daily smoker TOBACCO DEPENDENCE: -smoking cessation -continue bupropion Current Inpatient Medications: Current Inpatient Medications Medications (Trade) Dose Ordered Sig/Power Route Start Time Stop Time Status Last Admin Dose Admin Ioversol (Optiray 320) 100 ml UD PRN IV 03/24/17 12:00 03/28/17 11:59 Dextrose/Sodium Chloride 1,000 ml @ 125 mls/hr Q8H IV 03/24/17 18:30 04/23/17 18:29 03/27/17 13:49 125 MLS/HR Hydromorphone HCl (Dilaudid Inj) 0.5 mg Q3H PRN IV 03/24/17 17:15 04/07/17 17:14 03/26/17 20:16 0.5 MG Nicotine (Nicoderm Cq 14MG Patch) 1 patch QAM TD 03/25/17 09:00 04/24/17 08:59 03/26/17 08:32 1 PATCH Miscellaneous (Remove Nicoderm Patch) 1 ea HS N/A 03/24/17 21:00 04/23/17 20:59 03/26/17 20:43 1 EA Pantoprazole Sodium 40 mg/ Dextrose 100 ml @ 20 mls/hr Q5H IV 03/24/17 18:00 04/23/17 17:59 03/27/17 14:50 20 MLS/HR Ipratropium [place] (Atrovent 0.02% 0.5MG/2.5ML Neb) 0.5 mg Q6R INH 03/24/17 21:00 04/23/17 20:59 03/27/17 07:00 0.5 MG Levalbuterol (Xopenex 1.25MG/ 0.5ML Neb) 1.25 mg Q6R INH 03/24/17 21:00 04/23/17 20:59 03/27/17 07:01 1.25 MG Ondansetron HCl (Zofran Inj) 4 mg Q6H PRN IV 03/24/17 22:00 04/23/17 21:59 03/26/17 17:26 4 MG Bupropion HCl (Wellbutrin-Sr Tab) 100 mg BID PO 03/25/17 21:00 04/24/17 20:59 03/27/17 09:46 100 MG Polyethylene (Miralax Powder Packet) 17 gm DAILY PO 03/27/17 10:45 04/26/17 10:44 03/27/17 11:41 17 GM
[2017-03-27] MEDS ORDERED: NURSING VERBAL MED ORDER ONE (20:30)
[2017-03-27] MEDS: HYDROmorphone INJ 0.5 MG/0.5 ML SYR IV PRN (23:13)
[2017-03-28 00:41] VITALS: BP 101/66; PULSE 58; TEMP 36.4; O2SAT 99
[2017-03-28] MEDS: IPRATROPIUM BROMIDE NEB SOLN 0.02% 2.5 ML VIAL INH SCH ×4 (01:45→19:11)
[2017-03-28] MEDS: LEVALBUTEROL 1.25MG/0.5ML NEB INH SCH ×4 (01:45→19:12)
[2017-03-28] MEDS: PANTOprazole INJ 40 MG in DEXTROSE 5% 100ML IV SCH ×5 (01:50→22:08)
[2017-03-28 07:24] LABS: BASO % 0.8 %; BASO ABS # 0.05 K/uL (0-0.2); COMPLETE YES; EOS % 2.9 %; HEMATOCRIT 41.5 % (42-52); IG% 0.3 %; LYMPH ABS # 1.63 K/uL (1.2-3.4); MEAN CELL VOLUME 85.6 fL (80-100); MEAN CORPUSCULAR HEMOGLOBIN 30.7 pg (25-34); MEAN CORPUSCULAR HGB CONC 35.9 g/dl (32-36); MEAN PLATELET VOLUME 9.2 fL (7.4-10.4); MONO % 12.8 %; NEUT % 57.2 %; PLATELET COUNT 231 K/uL (130-400); RED BLOOD COUNT 4.85 M/uL (4.7-6.1); WHITE BLOOD COUNT 6.26 K/uL (4.8-10.8)
[2017-03-28 07:49] VITALS: BP 98/66; PULSE 72; TEMP 36.5; O2SAT 99
[2017-03-28 07:50] LABS: BUN/CREATININE RATIO 4.3 (10-20); CREATININE 0.75 mg/dl (0.60-1.40); MAGNESIUM 2.2 mg/dl (1.8-2.4); POTASSIUM 4.1 mmol/L (3.5-5.1)
[2017-03-28] MEDS: NICOTINE 14 MG/24 HR TDSY TD SCH ×2 (08:00→15:53)
[2017-03-28] MEDS: HYDROmorphone INJ 0.5 MG/0.5 ML SYR IV PRN ×2 (08:04→15:50)
--- NOTE | 2017-03-28 08:38 | DIAGNOSTIC IMAGING REPORT ---
[facility] CLINICAL HISTORY: Jejunal intussusception. Cleat Feeder film for small bowel follow-through. COMPARISON STUDY: CT scan dated 03/24/2017 FINDINGS: There is no pathologic bowel dilatation. There is moderate contrast within the colon. IMPRESSION: 1. Moderate residual contrast within nondilated colon. Electronically signed by: Levy Hampton M.D. 03/28/2017 8:36 AM Dictated Date/Time: 03/28/2017 8:35 AM
[2017-03-28] MEDS ORDERED: BISACODYL 5 MG TABEC PO ONE (09:45)
[2017-03-28] MEDS: BuPROPion SR 100 MG TABCR PO SCH ×2 (10:32→19:27)
[2017-03-28] MEDS: POLYETHYLENE (MIRALAX) 17 GM PACK PO SCH (10:33)
[2017-03-28] MEDS: D5W AND NSS 1,000 ML IV SCH ×2 (10:37→22:57)
--- NOTE | 2017-03-28 11:39 | Gastroenterology Progress Note ---
Progress Note Date of Service: Mar 28, 2017 Subjective Pt evaluation today including: conversation w/ patient, physical exam, chart review, lab review, review of studies, review of inpatient medication list Mr. Quezada is a 31 year old male which chronic abdominal pain, admitted for rectal bleeding, most recent in the ED at the time of arrival. On arrival, CT with small bowel intussusception w/o obstruction. Unable to get small bowel series yet as still with CT contrast in the large bowel which is obscuring the view of the small bowel. Review of Systems Constitutional: No fever ENT: No hearing loss Respiratory: No cough Cardiac: No chest pain Abdomen: + pain, + constipation (today, c/o constipation), No nausea, No vomiting, No diarrhea Male : No dysuria Neuro: No memory loss Psych: No depression symptoms Heme: No abnormal bleeding/bruising Endo: No fatigue Skin: No rash Medications Current Inpatient Medications Medications (Trade) Dose Ordered Sig/Power Route Start Time Stop Time Status Last Admin Dose Admin Ioversol (Optiray 320) 100 ml UD PRN IV 03/24/17 12:00 03/28/17 11:59 Dextrose/Sodium Chloride 1,000 ml @ 75 mls/hr [id number] IV 03/24/17 18:30 04/23/17 18:29 03/28/17 10:37 75 MLS/HR Hydromorphone HCl (Dilaudid Inj) 0.5 mg Q3H PRN IV 03/24/17 17:15 04/07/17 17:14 03/28/17 08:04 0.5 MG Nicotine (Nicoderm Cq 14MG Patch) 1 patch QAM TD 03/25/17 09:00 04/24/17 08:59 03/26/17 08:32 1 PATCH Miscellaneous (Remove Nicoderm Patch) 1 ea HS N/A 03/24/17 21:00 04/23/17 20:59 03/27/17 20:06 1 EA Pantoprazole Sodium 40 mg/ Dextrose 100 ml @ 20 mls/hr Q5H IV 03/24/17 18:00 04/23/17 17:59 03/28/17 06:34 20 MLS/HR Ipratropium [place] (Atrovent 0.02% 0.5MG/2.5ML Neb) 0.5 mg Q6R INH 03/24/17 21:00 04/23/17 20:59 03/27/17 07:00 0.5 MG Levalbuterol (Xopenex 1.25MG/ 0.5ML Neb) 1.25 mg Q6R INH 03/24/17 21:00 04/23/17 20:59 03/27/17 07:01 1.25 MG Ondansetron HCl (Zofran Inj) 4 mg Q6H PRN IV 03/24/17 22:00 04/23/17 21:59 03/26/17 17:26 4 MG Bupropion HCl (Wellbutrin-Sr Tab) 100 mg BID PO 03/25/17 21:00 04/24/17 20:59 03/28/17 10:32 100 MG Polyethylene (Miralax Powder Packet) 17 gm DAILY PO 03/27/17 10:45 04/26/17 10:44 03/28/17 10:33 17 GM Methylnaltrexone [place] (Relistor Inj) 12 mg ONE ONCE SQ 03/28/17 12:00 03/28/17 12:01 Objective Vital Signs Date Time Temp Pulse Resp B/P (MAP) Pulse Ox O2 Delivery O2 Flow Rate FiO2 03/28/17 08:00 Room Air 03/28/17 07:49 36.5 72 16 98/66 (77) 99 03/28/17 00:41 36.4 58 20 101/66 (78) 99 Room Air 03/28/17 00:00 Room Air 03/27/17 20:00 Room Air 03/27/17 16:00 Room Air 03/27/17 14:54 36.7 94 16 136/82 (100) 96 Room Air 03/27/17 12:05 125/85 (98) 03/27/17 12:01 36.6 75 20 98 Room Air Physical Exam General Appearance: no apparent distress ENT: pharynx normal Neck: supple, thyroid normal, no JVD Respiratory/Chest: lungs clear Cardiovascular: regular rate, rhythm, no JVD, no murmur Abdomen: normal bowel sounds, soft, + tenderness (moderate, diffuse) Neurologic/Psych: alert, normal mood/affect, oriented x 3 Skin: normal color, no jaundice Laboratory Results Last 24 Hours Test 03/28/17 07:06 White Blood Count 6.26 K/uL Red Blood Count 4.85 M/uL Hemoglobin 14.9 g/dL Hematocrit 41.5 % Mean Corpuscular Volume 85.6 fL Mean Corpuscular Hemoglobin 30.7 pg Mean Corpuscular Hemoglobin Concent 35.9 g/dl Platelet Count 231 K/uL Mean Platelet Volume 9.2 fL Neutrophils (%) (Auto) 57.2 % Lymphocytes (%) (Auto) 26.0 % Monocytes (%) (Auto) 12.8 % Eosinophils (%) (Auto) 2.9 % Basophils (%) (Auto) 0.8 % Neutrophils # (Auto) 3.58 K/uL Lymphocytes # (Auto) 1.63 K/uL Monocytes # (Auto) 0.80 K/uL Eosinophils # (Auto) 0.18 K/uL Basophils # (Auto) 0.05 K/uL RDW Standard Deviation 41.6 fL RDW Coefficient of Variation 13.3 % Immature Granulocyte % (Auto) 0.3 % Immature Granulocyte # (Auto) 0.02 K/uL Sodium Level 140 mmol/L Potassium Level 4.1 mmol/L Chloride Level 108 mmol/L Carbon Dioxide Level 27 mmol/L Anion Gap 6.0 mmol/L Blood Urea Nitrogen 3 mg/dl Creatinine 0.75 mg/dl Est Creatinine Clear Calc Drug Dose 117.1 ml/min Estimated GFR () 141.7 Estimated GFR (Non- 122.2 BUN/Creatinine Ratio 4.3 Random Glucose 96 mg/dl Calcium Level 9.0 mg/dl Magnesium Level 2.2 mg/dl Assessment and Plan Mr. Quezada is a 89 yr old male who experienced rectal bleeding w/o significant drop in Hb/Hct. This rectal bleeding occurred in the setting of chronic abdominal pain. Plan: 1. To help clear the CT contrast: laxatives and regular diet today. 2. Plan for small bowel series tomorrow. I performed a history and physical examination of the patient. I have discussed the patient's case, impression and plan with AVELINA Smith. Her note reflects my findings and plan. Still unsuccessful small bowel study. Will clean out patient with slow low level bowel prep. Dmitri Camacho MD
[2017-03-28] MEDS ORDERED: METHYLNALTREXONE BROMIDE INJ 12 MG/0.6 ML SYR SQ ONE (12:00)
[2017-03-28] MEDS ORDERED: BISACODYL 5 MG TABEC ONE (12:17)
[2017-03-28 15:30] VITALS: BP 98/61; PULSE 75; TEMP 36.6; O2SAT 99
--- NOTE | 2017-03-28 18:28 | Progress Note ---
Medicine Progress Note Date & Time of Visit: Mar 28, 2017 at 18:28. Subjective Patient reports being frustrated about having his test cancelled 3 times and was extremely hungry for solid foods, was finally advanced to full liquids and today was given solids so he is feeling better about that. He still reports some nausea. Had a BM yesterday. Feels his abdominal pain is better but is still taking IV pain medication. No overnight events noted. Objective Last 8 Hrs Date Time Temp Pulse Resp B/P (MAP) Pulse Ox O2 Delivery O2 Flow Rate FiO2 03/28/17 15:44 Room Air 03/28/17 15:30 36.6 75 18 98/61 (73) 99 Room Air Physical Exam: General: adult Head: atraumatic, normocephalic Eyes: PERRL, EOMI, anicteric, + ocular nystagmus Neck: supple, no JVD, no carotids bruits appreciated Lungs: Mild rhonchi bilaterally; no chest wall pain/tenderness to palpation noted Heart: RR; no murmur, no gallop, no rub appreciated, S1 and S2 auscultated Abdomen: soft, normal bowel sounds, no palpable masses, no notable hepatosplenomegaly; slightly tender to palpation in periumbilical region Extremities: no edema, no calf tenderness Neuro: alert, oriented x 3; no facial palsy; no dysarthria; no acute focal deficits noted Skin: warm, dry, no rashes Laboratory Results: Last 24 Hours Test 03/28/17 07:06 White Blood Count 6.26 K/uL Red Blood Count 4.85 M/uL Hemoglobin 14.9 g/dL Hematocrit 41.5 % Mean Corpuscular Volume 85.6 fL Mean Corpuscular Hemoglobin 30.7 pg Mean Corpuscular Hemoglobin Concent 35.9 g/dl Platelet Count 231 K/uL Mean Platelet Volume 9.2 fL Neutrophils (%) (Auto) 57.2 % Lymphocytes (%) (Auto) 26.0 % Monocytes (%) (Auto) 12.8 % Eosinophils (%) (Auto) 2.9 % Basophils (%) (Auto) 0.8 % Neutrophils # (Auto) 3.58 K/uL Lymphocytes # (Auto) 1.63 K/uL Monocytes # (Auto) 0.80 K/uL Eosinophils # (Auto) 0.18 K/uL Basophils # (Auto) 0.05 K/uL RDW Standard Deviation 41.6 fL RDW Coefficient of Variation 13.3 % Immature Granulocyte % (Auto) 0.3 % Immature Granulocyte # (Auto) 0.02 K/uL Sodium Level 140 mmol/L Potassium Level 4.1 mmol/L Chloride Level 108 mmol/L Carbon Dioxide Level 27 mmol/L Anion Gap 6.0 mmol/L Blood Urea Nitrogen 3 mg/dl Creatinine 0.75 mg/dl Est Creatinine Clear Calc Drug Dose 117.1 ml/min Estimated GFR () 141.7 Estimated GFR (Non- 122.2 BUN/Creatinine Ratio 4.3 Random Glucose 96 mg/dl Calcium Level 9.0 mg/dl Magnesium Level 2.2 mg/dl Assessment & Plan ABDOMINAL PAIN: SMALL BOWEL INTUSSUSCEPTION W/O OBSTRUCTION: -per CT scan 2 short segments of jejunojejunal intussusception noted without obstruction and of unknown significance -patient is now on clear liquids with persistent mild nausea -GI and Surgery consulted, appreciate recs -patient to have small bowel follow thru, hopefully tomorrow if the contrast moves out, has been cancelled 3 times -no plans for surgical intervention -etiology of intussusception unclear, patient did also have hematochezia prior to admission and has had longstanding history of chronic abdominal pain, and alternating bouts of constipation and diarrhea. -started miralax, GI has also added relistor, and an additional miralax ordered for PM WHEEZING: resolved -s/p recent treatment for whopping cough, completed course of azithro + steroids -symptoms improving with scheduled duonebs -no known history of lung disease however patient is a daily smoker TOBACCO DEPENDENCE: -smoking cessation -continue bupropion Current Inpatient Medications: Current Inpatient Medications Medications (Trade) Dose Ordered Sig/Power Route Start Time Stop Time Status Last Admin Dose Admin Dextrose/Sodium Chloride 1,000 ml @ 75 mls/hr [id number] IV 03/24/17 18:30 04/23/17 18:29 03/28/17 10:37 75 MLS/HR Hydromorphone HCl (Dilaudid Inj) 0.5 mg Q3H PRN IV 03/24/17 17:15 04/07/17 17:14 03/28/17 15:50 0.5 MG Nicotine (Nicoderm Cq 14MG Patch) 1 patch QAM TD 03/25/17 09:00 04/24/17 08:59 03/28/17 15:53 1 PATCH Miscellaneous (Remove Nicoderm Patch) 1 ea HS N/A 03/24/17 21:00 04/23/17 20:59 03/27/17 20:06 1 EA Pantoprazole Sodium 40 mg/ Dextrose 100 ml @ 20 mls/hr Q5H IV 03/24/17 18:00 04/23/17 17:59 03/28/17 17:21 20 MLS/HR Ipratropium [place] (Atrovent 0.02% 0.5MG/2.5ML Neb) 0.5 mg Q6R INH 03/24/17 21:00 04/23/17 20:59 03/27/17 07:00 0.5 MG Levalbuterol (Xopenex 1.25MG/ 0.5ML Neb) 1.25 mg Q6R INH 03/24/17 21:00 04/23/17 20:59 03/27/17 07:01 1.25 MG Ondansetron HCl (Zofran Inj) 4 mg Q6H PRN IV 03/24/17 22:00 04/23/17 21:59 03/26/17 17:26 4 MG Bupropion HCl (Wellbutrin-Sr Tab) 100 mg BID PO 03/25/17 21:00 04/24/17 20:59 03/28/17 10:32 100 MG Polyethylene (Miralax Powder Packet) 17 gm DAILY PO 03/27/17 10:45 04/26/17 10:44 03/28/17 10:33 17 GM Polyethylene (Miralax Powder Packet) 17 gm DAILY PRN PO 03/28/17 20:00 04/27/17 19:59 03/28/17 17:22 17 GM
[2017-03-28] MEDS ORDERED: POLYETHYLENE (MIRALAX) 17 GM PACK PO PRN (20:00)
[2017-03-28] MEDS: ONDANSETRON INJ 2 MG/ML 2 ML VIAL IV PRN (20:24)
[2017-03-28 23:56] VITALS: BP 93/51; PULSE 70; TEMP 36.6; O2SAT 98
[2017-03-29] MEDS: IPRATROPIUM BROMIDE NEB SOLN 0.02% 2.5 ML VIAL INH SCH ×3 (02:01→07:20)
[2017-03-29] MEDS: LEVALBUTEROL 1.25MG/0.5ML NEB INH SCH ×3 (02:02→07:20)
[2017-03-29] MEDS: PANTOprazole INJ 40 MG in DEXTROSE 5% 100ML IV SCH ×3 (02:53→14:00)
[2017-03-29 07:19] LABS: BASO % 1.1 %; BASO ABS # 0.07 K/uL (0-0.2); COMPLETE YES; EOS % 3.2 %; HEMATOCRIT 41.9 % (42-52); IG% 0.5 %; LYMPH % 22.9 %; LYMPH ABS # 1.51 K/uL (1.2-3.4); MEAN PLATELET VOLUME 9.8 fL (7.4-10.4); MONO % 15.5 %; NEUT % 56.8 %; PLATELET COUNT 210 K/uL (130-400); RED BLOOD COUNT 4.87 M/uL (4.7-6.1); WHITE BLOOD COUNT 6.59 K/uL (4.8-10.8)
[2017-03-29 07:56] LABS: BUN/CREATININE RATIO 12.5 (10-20); CALCIUM 8.7 mg/dl (8.5-10.1); CREATININE 0.87 mg/dl (0.60-1.40); POTASSIUM 4.1 mmol/L (3.5-5.1)
--- NOTE | 2017-03-29 10:26 | DIAGNOSTIC IMAGING REPORT ---
KUB HISTORY: GI bleed. COMPARISON: KUB 03/27/2017. FINDINGS: Contrast is seen throughout the colon from the prior studies. This remains unchanged. No dilated loops of small bowel to suggest an obstruction. No renal calculi. No ureteral calculi. No pneumoperitoneum or pneumatosis. IMPRESSION: Moderate residual contrast within the nondistended colon. No evidence for bowel obstruction. Electronically signed by: Lion Jurado M.D. 03/29/2017 10:25 AM Dictated Date/Time: 03/29/2017 10:23 AM
[2017-03-29] MEDS: BuPROPion SR 100 MG TABCR PO SCH (11:15)
[2017-03-29] MEDS: ONDANSETRON INJ 2 MG/ML 2 ML VIAL IV PRN (11:17)
[2017-03-29] MEDS: POLYETHYLENE (MIRALAX) 17 GM PACK PO SCH (11:17)
[2017-03-29] MEDS: HYDROmorphone INJ 0.5 MG/0.5 ML SYR IV PRN (11:18)
--- NOTE | 2017-03-29 11:45 | Surgery Progress Note ---
Surgery Progress Note Date of Service Mar 29, 2017. Subjective Post OP Day: HD # 5 states he had some abdominal pain after eating regular dinner last night but felt it was due to eating too much to fast. slight nausea now from the oral contrast for small bowel study generalized pain small bowel movement downstairs during study this am, passing flatus Objective Vital Signs: Date Time Temp Pulse Resp B/P (MAP) Pulse Ox O2 Delivery O2 Flow Rate FiO2 03/29/17 00:00 Room Air 03/28/17 23:56 36.6 70 18 93/51 (65) 98 Room Air 03/28/17 20:00 Room Air 03/28/17 15:44 Room Air 03/28/17 15:30 36.6 75 18 98/61 (73) 99 Room Air General Appearance: WD/WN, no apparent distress Head: normocephalic, atraumatic Neck: trachea midline Respiratory/Chest: no respiratory distress, no accessory muscle use Abdomen: non distended, soft, + tenderness (general abdomen, no peritonitis, rigidity, guarding, rebound) Laboratory Results: Results Past 24 Hours Test 03/29/17 06:36 Range/Units White Blood Count 6.59 4.8-10.8 K/uL Red Blood Count 4.87 4.7-6.1 M/uL Hemoglobin 15.1 14.0-18.0 g/dL Hematocrit 41.9 42-52 % Mean Corpuscular Volume 86.0 80-100 fL Mean Corpuscular Hemoglobin 31.0 25-34 pg Mean Corpuscular Hemoglobin Concent 36.0 32-36 g/dl Platelet Count 210 130-400 K/uL Mean Platelet Volume 9.8 7.4-10.4 fL Neutrophils (%) (Auto) 56.8 % Lymphocytes (%) (Auto) 22.9 % Monocytes (%) (Auto) 15.5 % Eosinophils (%) (Auto) 3.2 % Basophils (%) (Auto) 1.1 % Neutrophils # (Auto) 3.75 1.4-6.5 K/uL Lymphocytes # (Auto) 1.51 1.2-3.4 K/uL Monocytes # (Auto) 1.02 0.11-0.59 K/uL Eosinophils # (Auto) 0.21 0-0.5 K/uL Basophils # (Auto) 0.07 0-0.2 K/uL RDW Standard Deviation 42.0 36.4-46.3 fL RDW Coefficient of Variation 13.4 11.5-14.5 % Immature Granulocyte % (Auto) 0.5 % Immature Granulocyte # (Auto) 0.03 0.00-0.02 K/uL Sodium Level 139 136-145 mmol/L Potassium Level 4.1 3.5-5.1 mmol/L Chloride Level 107 98-107 mmol/L Carbon Dioxide Level 28 21-32 mmol/L Anion Gap 5.0 3-11 mmol/L Blood Urea Nitrogen 11 7-18 mg/dl Creatinine 0.87 0.60-1.40 mg/dl Est Creatinine Clear Calc Drug Dose 100.9 ml/min Estimated GFR () 133.3 Estimated GFR (Non- 115.0 BUN/Creatinine Ratio 12.5 10-20 Random Glucose 88 70-99 mg/dl Calcium Level 8.7 8.5-10.1 mg/dl Magnesium Level 2.0 1.8-2.4 mg/dl Assessment & Plan Small bowel Intussusception x 2 without obstruction -etiology unclear, small bowel study still pending, currently 3 hours into study, slow transit - patient is passing gas and having bowel movements, non-obstructed - tolerated regular diet yesterday - abdomen soft, tenderness throughout however no distention, guarding, rigidity, or peritonitis Plan: No surgical indication at this time Small bowel study still pending Patient is non-obstructed and passing gas and flatus. If no signs of obstruction on small bowel study, pain is controlled, and tolerating regular diet he could be discharged and further work-up as an outpatient. Follow-up with GI for upper and lower endoscopy as planned. Our services signing off at this time, please call with questions or concerns. Discussed with Dr. Redding who agrees with above.
[2017-03-29] MEDS: NICOTINE 14 MG/24 HR TDSY TD SCH (11:57)
[2017-03-29] MEDS: D5W AND NSS 1,000 ML IV SCH (13:37)
--- NOTE | 2017-03-29 14:11 | Gastroenterology Progress Note ---
Progress Note Date of Service: Mar 29, 2017 Subjective Pt evaluation today including: conversation w/ patient, conversation w/ family , physical exam, chart review, lab review, review of inpatient medication list Mr. Quezada is a 31 yr old male with acute on chronic abdominal pain. GI series today w/o obstruction or stricture (thus far - further films are planned). Pt hungry. Review of Systems Constitutional: No fever Respiratory: No cough Cardiac: No chest pain Abdomen: + pain, No nausea, No vomiting, No diarrhea Male : No dysuria Neuro: No memory loss Psych: No depression symptoms Heme: No abnormal bleeding/bruising Endo: No fatigue Skin: No rash Medications Current Inpatient Medications Medications (Trade) Dose Ordered Sig/Power Route Start Time Stop Time Status Last Admin Dose Admin Dextrose/Sodium Chloride 1,000 ml @ 75 mls/hr [id number] IV 03/24/17 18:30 04/23/17 18:29 03/29/17 13:37 75 MLS/HR Hydromorphone HCl (Dilaudid Inj) 0.5 mg Q3H PRN IV 03/24/17 17:15 04/07/17 17:14 03/29/17 11:18 0.5 MG Nicotine (Nicoderm Cq 14MG Patch) 1 patch QAM TD 03/25/17 09:00 04/24/17 08:59 03/29/17 11:57 1 PATCH Miscellaneous (Remove Nicoderm Patch) 1 ea HS N/A 03/24/17 21:00 04/23/17 20:59 03/28/17 19:27 1 EA Pantoprazole Sodium 40 mg/ Dextrose 100 ml @ 20 mls/hr Q5H IV 03/24/17 18:00 04/23/17 17:59 03/29/17 14:00 20 MLS/HR Ipratropium [place] (Atrovent 0.02% 0.5MG/2.5ML Neb) 0.5 mg Q6R INH 03/24/17 21:00 04/23/17 20:59 03/27/17 07:00 0.5 MG Levalbuterol (Xopenex 1.25MG/ 0.5ML Neb) 1.25 mg Q6R INH 03/24/17 21:00 04/23/17 20:59 03/27/17 07:01 1.25 MG Ondansetron HCl (Zofran Inj) 4 mg Q6H PRN IV 03/24/17 22:00 04/23/17 21:59 03/29/17 11:17 4 MG Bupropion HCl (Wellbutrin-Sr Tab) 100 mg BID PO 03/25/17 21:00 04/24/17 20:59 03/29/17 11:15 100 MG Polyethylene (Miralax Powder Packet) 17 gm DAILY PO 03/27/17 10:45 04/26/17 10:44 03/28/17 10:33 17 GM Polyethylene (Miralax Powder Packet) 17 gm DAILY PRN PO 03/28/17 20:00 04/27/17 19:59 03/28/17 17:22 17 GM Objective Vital Signs Date Time Temp Pulse Resp B/P (MAP) Pulse Ox O2 Delivery O2 Flow Rate FiO2 03/29/17 08:00 Room Air 03/29/17 00:00 Room Air 03/28/17 23:56 36.6 70 18 93/51 (65) 98 Room Air 03/28/17 20:00 Room Air 03/28/17 15:44 Room Air 03/28/17 15:30 36.6 75 18 98/61 (73) 99 Room Air Physical Exam General Appearance: no apparent distress ENT: pharynx normal Neck: no JVD Respiratory/Chest: lungs clear Cardiovascular: regular rate, rhythm, no JVD, no murmur Abdomen: soft, + tenderness (moderate diffuse tenderness) Extremities: non-tender Neurologic/Psych: alert, normal mood/affect, oriented x 3 Skin: no jaundice Laboratory Results Last 24 Hours Test 03/29/17 06:36 White Blood Count 6.59 K/uL Red Blood Count 4.87 M/uL Hemoglobin 15.1 g/dL Hematocrit 41.9 % Mean Corpuscular Volume 86.0 fL Mean Corpuscular Hemoglobin 31.0 pg Mean Corpuscular Hemoglobin Concent 36.0 g/dl Platelet Count 210 K/uL Mean Platelet Volume 9.8 fL Neutrophils (%) (Auto) 56.8 % Lymphocytes (%) (Auto) 22.9 % Monocytes (%) (Auto) 15.5 % Eosinophils (%) (Auto) 3.2 % Basophils (%) (Auto) 1.1 % Neutrophils # (Auto) 3.75 K/uL Lymphocytes # (Auto) 1.51 K/uL Monocytes # (Auto) 1.02 K/uL Eosinophils # (Auto) 0.21 K/uL Basophils # (Auto) 0.07 K/uL RDW Standard Deviation 42.0 fL RDW Coefficient of Variation 13.4 % Immature Granulocyte % (Auto) 0.5 % Immature Granulocyte # (Auto) 0.03 K/uL Sodium Level 139 mmol/L Potassium Level 4.1 mmol/L Chloride Level 107 mmol/L Carbon Dioxide Level 28 mmol/L Anion Gap 5.0 mmol/L Blood Urea Nitrogen 11 mg/dl Creatinine 0.87 mg/dl Est Creatinine Clear Calc Drug Dose 100.9 ml/min Estimated GFR () 133.3 Estimated GFR (Non- 115.0 BUN/Creatinine Ratio 12.5 Random Glucose 88 mg/dl Calcium Level 8.7 mg/dl Magnesium Level 2.0 mg/dl Assessment and Plan Mr. Quezada is a 31 yr old male with acute on chronic abdominal pain and rectal bleeding w/o significant drop in Hb/Hct. Pain is likely functional. Rectal bleeding likely hemorrhoidal as colonoscopy in 2015 w/o abnormalities. Plan: 1. Consider dicyclomine prn pain. 2. No further GI procedures planned. I have personally seen and examined the patient with AVELINA Smith. Her note reflects my exam and findings. I agree with her impression and plan. Small bowel follow through reviewed with radiology and though the final report is not done, there is no obstruction of continued intussusception seen. Advance diet as tolerates. Dmitri Camacho M.D.
--- NOTE | 2017-03-29 14:50 | DIAGNOSTIC IMAGING REPORT ---
SMALL BOWEL STUDY CLINICAL HISTORY: abdominal pain, GI bleeding, intussusception. COMPARISON STUDY: CT scan dated 03/24/2017 FLUOROSCOPY TIME: 1.1 minutes. NUMBER OF FLUOROSCOPIC IMAGES: 25 FINDINGS: The patient was administered Enterovue and a small bowel study was performed. Contrast reached the cecum and 5 hours and 20 minutes. There are no transition zones to indicate bowel obstruction. There is no abnormal flocculation of the barium. There is no evidence of bowel wall thickening. A mass impression on the mid small bowel, is felt to be secondary to adjacent colon. Real-time fluoroscopic spot images reveal no intrinsic masses. Spot films of terminal ileum were unremarkable. IMPRESSION: 1. Mildly increased small bowel transit time of 5 hours and 20 minutes 2. There are no transition zones to indicate bowel obstruction 3. No evidence of intussusception 4. Normal terminal ileum Electronically signed by: Levy Hampton M.D. 03/29/2017 2:49 PM Dictated Date/Time: 03/29/2017 2:39 PM
[2017-03-29 15:37] VITALS: BP 120/81; PULSE 88; TEMP 36.4; O2SAT 100
[2017-03-29] MEDS ORDERED: NICO14DI5 TD (17:03)
[2017-03-29] MEDS ORDERED: ONDA4TAB10 SL (17:03)
[2017-03-29] MEDS ORDERED: DICY10CA12 PO (17:03)
--- NOTE | 2017-03-29 17:10 | Discharge Instructions ---
Discharge Instructions Date of Service Mar 29, 2017. Admission Reason for Admission: Gi Bleed Discharge Discharge Diagnosis / Problem: GI bleed, Small bowel Intussusception Discharge Goals Goal(s): Therapeutic intervention Activity Recommendations Activity Limitations: per Instructions/Follow-up section Lifting Limitations: gradually increase as tolerated Exercise/Sports Limitations: gradually increase as tolerated . Instructions / Follow-Up Instructions / Follow-Up Please follow up with your Primary Care Physician in 5-7 days for hospital follow up Please follow up with [facility]; you will be contacted to schedule but if you do not hear anything in a week please call them at [phone] Current Hospital Diet Patient's current hospital diet: Regular Diet Discharge Diet Recommended Diet: Regular Diet Procedures Procedures Performed: Small bowel follow through Pending Studies Studies pending at discharge: no Medical Emergencies . Who to Call and When: Medical Emergencies: If at any time you feel your situation is an emergency, please call 911 immediately. . Non-Emergent Contact Non-Emergency issues call your: Primary Care Provider . . "Provider Documentation" section prepared by Brandy Schumacher. . VTE Core Measure Inpt VTE Proph given/why not?: SCD's
[2017-03-29 17:26] VITALS: BP 120/81; PULSE 88; TEMP 36.4; O2SAT 100
--- NOTE | 2017-03-29 18:54 | Discharge Summary ---
Discharge Summary Date of Service Mar 29, 2017. Discharge Summary Admission Date: Mar 24, 2017 at 16:28 Discharge Date: Mar 29, 2017 Admission Information HPI (per Admitting provider): 31 year old male with history of Smoking presenting with abdominal pain that started this morning. Patient was doing well until this morning. He had a bowel movement associated with hematochezia and abdominal pain- diffuse, crampy, comes in waves. The abdominal pain persisted prompting consult to the ER. CT scan abdomen/pelvis showing jejuno-jejunal intussusception. On exam, patient seen sitting up in bed. States pain is worse when laying flat. Pain is about 8-9/10, associated with nausea, chills. No recurrence of hematochezia. Physical Exam (per Admitting): General Appearance: WD/WN, no apparent distress Head: normocephalic, atraumatic Eyes: normal inspection, EOMI, sclerae normal ENT: normal ENT inspection, hearing grossly normal, pharynx normal Neck: supple, no adenopathy, thyroid normal, no JVD, no carotid bruits Respiratory/Chest: no respiratory distress, no accessory muscle use, + wheezing (mild scattered bilaterally) Cardiovascular: regular rate, rhythm, no edema, no JVD, no murmur Abdomen/GI: normal bowel sounds, non tender, soft Extremities/Musculoskelatal: normal inspection, no calf tenderness, no pedal edema, normal range of motion Neurologic/Psych: pig handler II-XII nml as tested, no motor/sensory deficits, alert , normal reflexes, oriented x 3 Skin: normal color, warm/dry, no rash Lymphatic: no adenopathy Hospital Course ABDOMINAL PAIN: SMALL BOWEL INTUSSUSCEPTION W/O OBSTRUCTION: -per CT scan 2 short segments of jejunojejunal intussusception noted without obstruction and of unknown significance -patient is now on clear liquids with persistent mild nausea -GI and Surgery consulted, appreciate recs -patient to have small bowel follow thru, hopefully tomorrow if the contrast moves out, has been cancelled 3 times -no plans for surgical intervention -etiology of intussusception unclear, patient did also have hematochezia prior to admission and has had longstanding history of chronic abdominal pain, and alternating bouts of constipation and diarrhea. -started miralax, GI has also added relistor, and an additional miralax ordered for PM WHEEZING: resolved -s/p recent treatment for whopping cough, completed course of azithro + steroids -symptoms improving with scheduled duonebs -no known history of lung disease however patient is a daily smoker TOBACCO DEPENDENCE: -smoking cessation -continue bupropion Total time spent on discharge = This includes examination of the patient, discharge planning, medication reconciliation, and communication with other providers.
== END 2017-03-29 18:51 | disposition home or self-care (01) | DRG 390 ==
LOC: C.EDB 10:03 → C.2E 16:28 → EEVIPCON 16:28 → ENRESERV 16:55 → C.4E 03-27 11:53
PROVIDERS: ADMIT Internal Medicine; ATTEND Internal Medicine
DX: K56.1 Intussusception (principal); K64.9 Unspecified hemorrhoids; G89.29 Other chronic pain; R10.9 Unspecified abdominal pain; K59.00 Constipation, unspecified; R11.0 Nausea; R06.2 Wheezing; F17.200 Nicotine dependence, unspecified, uncomplicated; Z53.09 Procedure and treatment not carried out because of other contraindication; Z23 Encounter for immunization; Z86.19 Personal history of other infectious and parasitic diseases; Z83.79 Family history of other diseases of the digestive system; Z79.899 Other long term (current) drug therapy

== ENCOUNTER → 2017-09-11 | Outpatient (CLI) | payer OTHER ==
[~2017-09-11] MED LIST changes: +AMPH10TA2 PO; +AMPH20CA3 PO; +BUPR-79 PO; -CYCL10TA6 PO; -HYDR-5688 PO; +ONDA4TAB46 PO; +PREG1CAP28 PO
[2017-09-11 09:39] LABS: BASO % 0.4 %; BASO ABS # 0.03 K/uL (0-0.2); EOS % 1.6 %; EOS ABS # 0.12 K/uL (0-0.5); HEMATOCRIT 44.1 % (42-52); HEMOGLOBIN 15.9 g/dL (14.0-18.0); IG# 0.02 K/uL (0.00-0.02); LYMPH % 31.7 %; LYMPH ABS # 2.44 K/uL (1.2-3.4); MEAN CELL VOLUME 86.5 fL (80-100); MEAN CORPUSCULAR HEMOGLOBIN 31.2 pg (25-34); MEAN CORPUSCULAR HGB CONC 36.1 g/dl (32-36); MEAN PLATELET VOLUME 10.3 fL (7.4-10.4); MONO % 13.4 %; MONO ABS # 1.03 K/uL (0.11-0.59); NEUT % 52.6 %; NEUT ABS # 4.06 K/uL (1.4-6.5); PLATELET COUNT 244 K/uL (130-400); RED CELL DISTRIBUTION WIDTH CV 13.4 % (11.5-14.5); RED CELL DISTRIBUTION WIDTH SD 42.5 fL (36.4-46.3)
== END | disposition home or self-care (01) ==
LOC: C.LAB 06:51
PROVIDERS: ATTEND Orthopaedic Surgery Orthopaedic Surgery of the Spine
DX: Z01.812 Encounter for preprocedural laboratory examination (principal)

== ENCOUNTER 2017-09-23 05:47 | Observation (INO) | payer OTHER ==
[2017-09-03 15:53] VITALS: BMI 22.0
--- NOTE | 2017-09-22 20:43 | HISTORY & PHYSICAL EXAMINATION ---
DATE OF ADMISSION: 09/23/2017 CHIEF COMPLAINT: Left back pain, buttock pain, numbness and tingling. HISTORY OF PRESENT ILLNESS: Moshe is a 32-year-old male, works at [employer], I have known him for years, he is longstanding at the hospital. He has back and lower extremity difficulty, paresthesias, numbness and tingling. He has been to day care home mother, many pain management care, injections, medication. 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 MEDICAL HISTORY: Stomach ulcers. SURGICAL HISTORY: Vasectomy, carpal tunnel, tonsillectomy. ALLERGIES: GABAPENTIN. CURRENT MEDICATIONS: Wellbutrin, Zofran, Lyrica. FAMILY HISTORY: Negative for heart disease, diabetes, carcinoma. SOCIAL HISTORY: He is . No alcohol. [id number] history of tobacco. Very active. REVIEW OF SYSTEMS: Denies any blurred vision, double vision, tinnitus or vertigo. Does have some difficulty with sight, wears corrective lenses. Ear, nose and throat negative. Denies any chest pain or shortness of breath. Denies asthma or wheezing. Denies nausea, vomiting, urgency, frequency. No change in bowel habits. Admits to sleep issues. He admits to numbness and tingling. The rest of the 12-system review negative. PHYSICAL EXAMINATION: GENERAL: He is 5 feet, 136. Alert, oriented x3. Mentation normal. No depression. HEENT: Pupils react to light and accommodation. Ear, nose and throat clear. CARDIAC: Normal S1, S2. VITAL SIGNS: Blood pressure 130/80, pulse 80. MUSCULOSKELETAL: He ambulates independently. He has pain with straight leg raising on the left, none on the right hand side. He has adequate motor strength. He has 1/4 reflexes. Decreased range of motion and pain with percussion. Images demonstrate some foraminal stenosis L4-L5, L5-S1 left. IMPRESSION: Stenosis. DISPOSITION: Lumbar spine surgery. He is set up for L4-S1 foraminotomy.
[2017-09-23] VITALS (9 sets, daily range): BP systolic 99–118; BP diastolic 58–73; PULSE 50–70; TEMP 36.4–36.6; O2SAT 98–100; Ht 165.1 cm; Wt 61.4 kg
[~2017-09-23] VITALS: Ht 165.1 cm; Wt 61.4 kg
[2017-09-23] MEDS ORDERED: CEFAZOLIN 1000MG IV PUSH 7.5 ML IV SCH (06:00)
[2017-09-23] MEDS ORDERED: ACETAMINOPHEN 1000 MG/100 ML IV IV SCH (06:00)
[2017-09-23] MEDS ORDERED: CEFAZOLIN SOD 1000MG/7.5 ML IV PUSH IV ONE (06:28)
[2017-09-23] MEDS ORDERED: THROMBIN FOR SOLN 20000 UNIT KIT ONE (07:00)
[2017-09-23] MEDS ORDERED: GELATIN SPONGE SZ 100 ONE (07:00)
[2017-09-23] MEDS ORDERED: BACITRACIN 50000 UNIT VIAL ONE (07:01)
[2017-09-23] MEDS ORDERED: VANCOMYCIN HCL 1000MG/20ML VIAL ONE (07:01)
[2017-09-23] MEDS ORDERED: BUPIVACAINE/EPINEPHRINE 0.5% MPF 1:200,000 30 ML VIAL ONE (07:02)
[2017-09-23] MEDS ORDERED: PROPOFOL IV EMULSION 10 MG/ML 20 ML VIAL IV ONE (07:05)
[2017-09-23] MEDS ORDERED: MIDAZOLAM HCL 1 MG/ML 2ML VIAL ONE (07:05)
[2017-09-23] MEDS ORDERED: LIDOCAINE HCL 2% 2 ML VIAL (20MG/ML) ONE (07:05)
[2017-09-23] MEDS ORDERED: FENTANYL CITRATE INJ 50 MCG/1 ML 2 ML VIAL ONE (07:05)
--- NOTE | 2017-09-23 07:16 | History & Physical Bridge Note ---
H&P Re-Evaluation Bridge Note: I have examined the patient, reviewed the History & Physical and in the interval since the performance of the History & Physical I have noted the following changes of clinical significance: No changes noted
[2017-09-23] MEDS ORDERED: HYDROmorphone INJ 2 MG/ML SYR/VIAL ONE (07:45)
[2017-09-23] MEDS ORDERED: DEXAMETHASONE SOD INJ 4 MG/ML VIAL ONE (07:57)
[2017-09-23] MEDS ORDERED: ONDANSETRON INJ 2 MG/ML 2 ML VIAL ONE (07:57)
[2017-09-23] MEDS ORDERED: PROMETHAZINE HCL INJ 12.5 MG in SODIUM CHLORIDE 0.9% 50ML 50 ML IV PRN ×2 (08:30→09:00)
[2017-09-23] MEDS ORDERED: ATROPINE SULFATE 0.1 MG/ML 5ML SYR IV PRN (08:30)
[2017-09-23] MEDS ORDERED: NALOXONE HCL 0.4 MG/1 ML VIAL/CARP IV PRN (08:30)
[2017-09-23] MEDS ORDERED: FLUMAZENIL 0.1 MG/1 ML 10 ML VIAL IV PRN (08:30)
[2017-09-23] MEDS ORDERED: EpHEDrine SULFATE INJ 50 MG/ML AMP IV PRN (08:30)
[2017-09-23] MEDS ORDERED: ONDANSETRON INJ 2 MG/ML 2 ML VIAL IV PRN (08:30)
[2017-09-23] MEDS ORDERED: GLYCOPYRROLATE INJ 0.2 MG/ML VIAL ONE (08:32)
[2017-09-23] MEDS ORDERED: NEOSTIGMINE METHYLSULFATE 5 MG/5 ML SYR ONE (08:32)
--- NOTE | 2017-09-23 08:47 | [facility] Post Operative Brief Note ---
Immediate Operative Summary Operative Date Sep 23, 2017. Pre-Operative Diagnosis Foraminal Stenosis L4-L5, L5-S1 Post-Operative Diagnosis Foraminal Stenosis L4-L5, L5-S1 Procedure(s) Performed L4-L5, L5-S1 Laminectomy/Foraminotomy Surgeon Dr. Olivera Rug Backing Stenciler Surgeon(s) Alonso Moore PA-C Estimated Blood Loss 20 cc Findings Consistent with Post-Op Diagnosis Specimens none per surgeon Anesthesia Type General Disposition Accompanied Pt To Recover: no Disposition: Recovery Room / PACU
[2017-09-23] MEDS ORDERED: SODIUM CHLORIDE 0.9% 1000ML 1,000 ML IV SCH (08:50)
[2017-09-23] MEDS ORDERED: METOCLOPRAMIDE HCL INJ 5 MG/ML 2 ML VIAL IV PRN (09:00)
[2017-09-23] MEDS ORDERED: LORAZEPAM 1 MG TAB PO PRN (09:00)
[2017-09-23] MEDS ORDERED: HYDROmorphone INJ 2 MG/ML SYR/VIAL IV PRN ×2 (09:00)
[2017-09-23] MEDS ORDERED: ACETAMINOPHEN 325 MG TAB PO PRN (09:00)
[2017-09-23] MEDS ORDERED: OXYCODONE/ACETAMINOPHEN 5-325 TAB PO PRN (09:00)
[2017-09-23] MEDS ORDERED: MAGNESIUM HYDROXIDE SUSP 30 ML UDC PO PRN (09:00)
[2017-09-23] MEDS ORDERED: LORAZEPAM INJ 1 MG in SYRINGE 0.5 ML IV PRN (09:00)
[2017-09-23] MEDS: HYDROmorphone INJ 0.5 MG/0.5 ML SYR IV PRN ×3 (09:03→09:13)
--- NOTE | 2017-09-23 09:44 | Anesthesiology Progress Note ---
Anesthesia Post Op Note Date & Time Sep 23, 2017 at 09:44 Vital Signs Pain Intensity: 4 Vital Signs Past 12 Hours Date Time Temp Pulse Resp B/P (MAP) Pulse Ox O2 Delivery O2 Flow Rate FiO2 09/23/17 09:30 36.7 70 14 106/74 100 Nasal Cannula 4 09/23/17 09:20 62 12 116/73 100 Nasal Cannula 4 09/23/17 09:10 62 12 119/67 100 Oxymask 10 09/23/17 09:00 69 18 129/72 100 Oxymask 10 09/23/17 08:53 35.7 76 14 136/77 100 Oxymask 10 09/23/17 06:06 36.4 61 20 114/64 (81) 99 Room Air Notes Mental Status: alert / awake / arousable, participated in evaluation Pt Amnestic to Procedure: Yes Nausea / Vomiting: adequately controlled Pain: adequately controlled Airway Patency, RR, SpO2: stable & adequate BP & HR: stable & adequate Hydration State: stable & adequate Anesthetic Complications: no major complications apparent
--- NOTE | 2017-09-23 09:48 | OPERATIVE REPORT ---
DATE OF OPERATION: 09/23/2017 PREOPERATIVE DIAGNOSIS: Foraminal stenosis L4-5, L5-S1. POSTOPERATIVE DIAGNOSIS: Same. PROCEDURES: Included lumbar spine laminotomy, foraminotomy, partial facetectomy L4-L5 and L5-S1 with a 2 level. SURGEON: Edgardo PLEITEZ DO DEBT COUNSELOR: Alonso Moore PA-C. COMPLICATIONS: Zero. BLOOD LOSS: Less than 20. DESCRIPTION OF PROCEDURE: The patient was taken to the operating room, a general intubated anesthetic provided to the patient, placed prone, properly placed, scrubbed, prepped sterile. We made a skin incision, fascial incision, came right down to interspace at L5-S1 and L4-L5. I did upgoing laminotomy at both levels, downgoing laminotomy as well, did a good foraminotomy and took off some ligamentum flavum. I made sure the nerve root was completely free of obstruction. I undercut the facet joint. There was no pressure. I probed each and every nerve root all under visualization. I felt they were free of pressure. We irrigated, closed in layers over Hemovac drain. Sterile dressing applied. The patient returned to PACU in improved stable condition. No apparent complications. Sponge and needle count correct. I attest to the content of the Intraoperative Record and any orders documented therein. Any exception s are noted below.
[2017-09-23] MEDS ORDERED: ROCURONIUM BROMIDE 10 MG/ML 5 ML VIAL IV ONE (10:19)
--- NOTE | 2017-09-23 10:52 | DIAGNOSTIC IMAGING REPORT ---
LUMBAR SPINE, INTRAOPERATIVE FLUOROSCOPY HISTORY: L4-S1 laminectomy. FLUOROSCOPY TIME: 2 seconds. FINDINGS: Intraoperative fluoroscopy was provided for the lumbar spine. Single fluoroscopic spot image demonstrates skin retractors and a surgical instrument posterior to the L5-S1 level. IMPRESSION: Fluoroscopy provided for a L4-S1 laminectomy.. Electronically signed by: Lion Jurado M.D. 09/23/2017 10:50 AM Dictated Date/Time: 09/23/2017 10:50 AM
[2017-09-23] MEDS ORDERED: AMPHETAMINE ASP/SULF/DEXTRAMPH 10 MG TAB PO SCH (12:00)
[2017-09-23] MEDS: DEXAMETHASONE INJ 10 MG in SYRINGE 0 ML IV SCH ×2 (12:22→20:28)
[2017-09-23] MEDS: KETOROLAC TROMETHAMINE 30 MG/ML VIAL IV SCH ×3 (12:22→23:51)
[2017-09-23] MEDS: OXYCODONE/ACETAMINOPHEN 5-325 TAB PO PRN ×2 (14:32→20:29)
[2017-09-23] MEDS ORDERED: NURSING VERBAL MED ORDER ONE ×3 (15:45→22:15)
[2017-09-23] MEDS ORDERED: IV FLUIDS COMPLETED PRN (16:00)
[2017-09-23] MEDS: CEFAZOLIN IV 1,000 MG in SYRINGE 0 ML IV SCH ×2 (16:42→23:51)
[2017-09-23] MEDS: PREGABALIN 75 MG CAP PO SCH (16:42)
[2017-09-23] MEDS: BuPROPion SR 150 MG TABCR PO SCH (16:43)
[2017-09-23] MEDS: ONDANSETRON INJ 2 MG/ML 2 ML VIAL IV PRN ×2 (16:49→23:51)
[2017-09-23] MEDS ORDERED: ONDANSETRON 4 MG TAB PO PRN (18:15)
[2017-09-23] MEDS: NICOTINE 21 MG/24 HR TDSY TD SCH (18:38)
[2017-09-23] MEDS ORDERED: PREGABALIN 75 MG CAP PO SCH (21:00)
[2017-09-23] MEDS ORDERED: BuPROPion SR 150 MG TABCR PO SCH (21:00)
[2017-09-24 03:02] VITALS: BP 103/54; PULSE 55; TEMP 36.5; O2SAT 98
[2017-09-24] MEDS: OXYCODONE/ACETAMINOPHEN 5-325 TAB PO PRN ×2 (03:10→08:13)
[2017-09-24] MEDS: DEXAMETHASONE INJ 10 MG in SYRINGE 0 ML IV SCH (03:50)
[2017-09-24] MEDS: BuPROPion SR 150 MG TABCR PO SCH (05:30)
[2017-09-24] MEDS: PREGABALIN 75 MG CAP PO SCH (05:31)
[2017-09-24] MEDS ORDERED: NURSING DECISION MEDICATION ORDER SCH (05:45)
[2017-09-24] MEDS ORDERED: BISACODYL 10 MG SUPP PR PRN (06:00)
[2017-09-24] MEDS ORDERED: BISACODYL 5 MG TABEC PO PRN (06:00)
[2017-09-24] MEDS: KETOROLAC TROMETHAMINE 30 MG/ML VIAL IV SCH (06:08)
[2017-09-24] MEDS: ONDANSETRON INJ 2 MG/ML 2 ML VIAL IV PRN (06:08)
[2017-09-24 07:00] VITALS: BP 104/59; PULSE 62; TEMP 36.6; O2SAT 99
[2017-09-24] MEDS: CEFAZOLIN IV 1,000 MG in SYRINGE 0 ML IV SCH ×3 (07:52→08:06)
[2017-09-24] MEDS: NICOTINE 21 MG/24 HR TDSY TD SCH (08:11)
[2017-09-24] MEDS ORDERED: POLYETHYLENE (MIRALAX) 17 GM PACK PO SCH (09:00)
[2017-09-24] MEDS ORDERED: AMPHETAMINE ASP/SULF/DEXTRAMPH ER 20 MG CAP PO SCH (09:00)
--- NOTE | 2017-09-24 09:06 | Discharge Instructions ---
Discharge Instructions Date of Service Sep 24, 2017. Admission Reason for Admission: Lumbar Spinal Stenosis Discharge Discharge Diagnosis / Problem: same Discharge Goals Goal(s): Improve function Activity Recommendations Activity Limitations: as noted below Lifting Limitations: no more than 5 pounds Exercise/Sports Limitations: until after follow-up appointment May Resume Sexual Activity: after follow-up appointment Shower/Bathe: keep incision dry home, rest, recover . Current Hospital Diet Patient's current hospital diet: Regular Diet Discharge Diet Recommended Diet: Regular Diet Procedures Procedures Performed: L4-L5, L5-S1 Laminectomy/Foraminotomy Pending Studies Studies pending at discharge: no Medical Emergencies . Who to Call and When: Medical Emergencies: If at any time you feel your situation is an emergency, please call 911 immediately. . Non-Emergent Contact Non-Emergency issues call your: Primary Care Provider . "Provider Documentation" section prepared by Edgardo Olivera. .
[2017-09-24] MEDS ORDERED: HYDR-4383 PO (09:09)
[2017-09-24 10:19] VITALS: BP 104/59; PULSE 62; TEMP 36.6; O2SAT 99
== END 2017-09-24 11:05 | disposition home or self-care (01) ==
LOC: C.ACU 05:47 → UNDOADMOB 07:10 → C.3E 07:10 → ENRESERV 09:38
PROVIDERS: ADMIT Orthopaedic Surgery Orthopaedic Surgery of the Spine; ATTEND Orthopaedic Surgery Orthopaedic Surgery of the Spine
DX: M48.07 Spinal stenosis, lumbosacral region (principal); M51.36 Other intervertebral disc degeneration, lumbar region; F90.2 Attention-deficit hyperactivity disorder, combined type; F41.8 Other specified anxiety disorders; F32.9 Major depressive disorder, single episode, unspecified; G47.00 Insomnia, unspecified; F17.200 Nicotine dependence, unspecified, uncomplicated; Z98.52 Vasectomy status; Z79.899 Other long term (current) drug therapy; Z98.890 Other specified postprocedural states; Z90.89 Acquired absence of other organs; Z88.8 Allergy status to other drugs, medicaments and biological substances; Z82.49 Family history of ischemic heart disease and other diseases of the circulatory system; Z83.3 Family history of diabetes mellitus